=== PATIENT | male | born 1985 | race Caucasian/White ===

== ENCOUNTER 2016-12-27 16:11 | Emergency (ER) | payer MEDICAID ==
--- NOTE | 2016-12-27 16:17 | EDM.PDOC ---
ED HPI GENERAL MEDICAL PROBLEM - General Chief Complaint: ENT Problem Stated Complaint: MOUTH PAIN, [id number] Time Seen by Provider: 12/27/16 16:16 Source of Information: Reports: Patient, RN, RN Notes Reviewed History Limitations: Reports: No Limitations - History of Present Illness INITIAL COMMENTS - FREE TEXT/NARRATIVE: C/O left lower molar cavity that broke off weeks ago. Last week it hurt for several days, then got better. Yesterday the pain returned and was worse, then this morning he woke with left face swelling along the lower jaw. Denies purulent drainage, fever, or chills. Onset: Gradual Duration: Constant, Getting Worse Location: Reports: Other (mouth) Quality: Reports: Ache, Throbbing Severity: Severe Improves with: Reports: None Worsens with: Reports: None Associated Symptoms: Reports: No Other Symptoms Left Lower Pain Score (Numeric/FACES): 9 - Related Data Allergies Allergy/AdvReac Type Severity Reaction Status Date / Time codeine Allergy Cannot Verified 12/27/16 16:23 Remember Sulfa (Sulfonamide Allergy Cannot Verified 12/27/16 16:23 Antibiotics) Remember Home Meds: Home Meds . [No Known Home Meds] 12/27/16 [History] Past Medical History - Infectious Disease History Infectious Disease History: Reports: Hepatitis C Social & Family History - Family History Family Medical History: Noncontributory - Tobacco Use Smoking Status *Q: Current Every Day Smoker Tobacco Use Within Last Twelve Months: Cigarettes - Caffeine Use Caffeine Use: Reports: Coffee, Energy Drinks, Soda - Alcohol Use Alcohol Use History: No - Recreational Drug Use Recreational Drug Use: No - Living Situation & Occupation Occupation: Employed ED ROS ENT - Review of Systems Review Of Systems: ROS reveals no pertinent complaints other than HPI. ED EXAM, ENT - Physical Exam Exam: See Below Exam Limited By: No Limitations General Appearance: Alert, WD/WN, No Apparent Distress Eye Exam: Bilateral Eye: Normal Inspection Ears: Normal External Exam, Normal Canal, Hearing Grossly Normal, Normal TMs Nose: Normal Inspection, Normal Mucousa, No Blood Mouth/Throat: Normal Lips, Normal Oropharynx, Dental Abcess (left mandibular molar), Dental Pain, Dental Tenderness, Other (extensive dental decay) Head: Atraumatic, Normocephalic, Facial Swelling, Facial Tenderness (left mandibular) Neck: Normal Inspection, Supple, Non-Tender, Full Range of Motion. No: Lymphadenopathy (L), Lymphadenopathy (R) Respiratory/Chest: No Respiratory Distress Neurological: Alert, Oriented, CN II-XII Intact, Normal Cognition, Normal Gait, No Motor/Sensory Deficits Psychiatric: Normal Affect, Normal Mood Skin: Warm, Dry, Intact, Normal Color, No Rash Course - Vital Signs Last Recorded V/S: Last Vital Signs Temp 36.8 C 12/27/16 16:24 Pulse 94 12/27/16 16:24 Resp 18 12/27/16 16:24 BP 122/75 12/27/16 16:24 Pulse Ox 100 12/27/16 16:24 - Orders/Labs/Meds Orders: Active Orders 24 hr Category Date Time Status Peripheral IV Care [RC] . DIRECTED Care 12/27/16 16:35 Active Sodium Chloride 0.9% [Saline Flush] Med 12/27/16 16:34 Active 10 ml FLUSH ASDIRECTED PRN Peripheral IV Insertion Adult [OM.PC] Stat Oth 12/27/16 16:34 Ordered Medication Orders Sodium Chloride (Saline Flush) 10 ml FLUSH ASDIRECTED PRN PRN Reason: Keep Vein Open Last Admin: 12/27/16 16:45 Dose: 10 ml Meds: Medications Generic Name Dose Route Start Last Admin Trade Name Freq PRN Reason Stop Dose Admin Sodium Chloride 10 ml 12/27/16 16:34 12/27/16 16:45 Saline Flush FLUSH 10 ml ASDIRECTED PRN Administration Keep Vein Open Discontinued Medications Generic Name Dose Route Start Last Admin Trade Name Freq PRN Reason Stop Dose Admin Dexamethasone 20 mg 12/27/16 16:35 12/27/16 16:45 Dexamethasone IVPUSH 12/27/16 16:36 20 mg ONETIME ONE Administration Piperacillin Sod/Tazobactam 100 mls @ 200 mls/hr 12/27/16 16:35 12/27/16 16: 43 Sod 3.375 gm/ Sodium Chloride IV 12/27/16 17:04 200 mls/hr ONETIME ONE Administration Lidocaine HCl 15 ml 12/27/16 16:36 12/27/16 16:45 Xylocaine 2% Viscous PO 12/27/16 16:37 15 ml ONETIME ONE Administration Tramadol HCl 50 mg 12/27/16 16:37 06/05/17 16:45 Ultram PO 12/27/16 16:38 50 mg ONETIME ONE Administration Departure - Departure Time of Disposition: 17:18 Disposition: Home, Self-Care 01 Condition: good Clinical Impression: Dental abscess, Dental caries - Discharge Information Instructions: Dental Abscess, [id number], Dental Caries, [id number] Forms: ED Department Discharge Additional Instructions: Rx: Amoxicillin 500mg Rx: Flagyl 500mg Rx: Viscous Lidocaine 2% Follow up with dentist at the first available appointment. - My Orders Last 24 Hours: My Active Orders 12/27/16 16:34 Sodium Chloride 0.9% [Saline Flush] 10 ml FLUSH ASDIRECTED PRN Peripheral IV Insertion Adult [OM.PC] Stat 12/27/16 16:35 Peripheral IV Care [RC] . DIRECTED - Assessment/Plan Last 24 Hours: My Active Orders 12/27/16 16:34 Sodium Chloride 0.9% [Saline Flush] 10 ml FLUSH ASDIRECTED PRN Peripheral IV Insertion Adult [OM.PC] Stat 12/27/16 16:35 Peripheral IV Care [RC] . DIRECTED
[2016-12-27 16:27] VITALS: BP 122/75
[2016-12-27] MEDS ORDERED: Sodium Chloride 0.9% 10 ML Syringe FLUSH PRN (16:34)
[2016-12-27] MEDS ORDERED: Dexamethasone 4 MG/ML SDV IVPUSH ONE (16:35)
[2016-12-27] MEDS ORDERED: Piperacillin/Tazobactam 3.375 GM in Sodium Chloride 0.9% 100 ML IV ONE (16:35)
[2016-12-27] MEDS ORDERED: Lidocaine 2% Viscous Solution 15 ML Cup PO ONE (16:36)
[2016-12-27] MEDS ORDERED: traMADol 50 MG Tab PO ONE (16:37)
== END 2016-12-27 17:16 | disposition home or self-care (01) ==
LOC: DL.ED 16:11
DX: K04.7 Periapical abscess without sinus (principal); K02.9 Dental caries, unspecified; F17.210 Nicotine dependence, cigarettes, uncomplicated; Z88.2 Allergy status to sulfonamides; Z88.5 Allergy status to narcotic agent
CPT/HCPCS: 96365; 96375; 99282; A9270; J1100; J2543; J7050

== ENCOUNTER 2018-01-29 15:25 | Emergency (ER) | payer MEDICAID ==
[2018-01-29] MEDS ORDERED: Sodium Chloride 0.9% 10 ML Syringe FLUSH PRN (17:40)
[2018-01-29] MEDS ORDERED: Ondansetron 4 MG/2 ML SDV IV ONE (17:42)
[2018-01-29] MEDS ORDERED: Sodium Chloride 0.9% 1,000 ML IV ONE (17:42)
[2018-01-29 18:21] LABS: ANION GAP 10.4; CHLORIDE,CL 101 mmol/L (101-111); SODIUM,NA 137 mmol/L (135-145)
--- NOTE | 2018-01-29 19:12 | EDM.PDOC ---
Scribed by Rita Law 01/29/18 1903 for Garfield Fernandez MD <Valeria Hearn - Last Filed: 01/29/18 19:56> ED HPI GENERAL MEDICAL PROBLEM - General Chief Complaint: Abdominal Pain Stated Complaint: SEVERE STOMACH PAIN, CANT EAT [id number] Time Seen by Provider: 01/29/18 17:20 - Related Data Allergies Allergy/AdvReac Type Severity Reaction Status Date / Time codeine Allergy Cannot Verified 01/29/18 17:25 Remember Sulfa (Sulfonamide Allergy Cannot Verified 01/29/18 17:25 Antibiotics) Remember Home Meds: Home Meds . [No Known Home Meds] 12/27/16 [History] Course - Vital Signs Last Recorded V/S: Last Vital Signs Temp 36.9 C 01/29/18 20:00 Pulse 99 01/29/18 20:00 Resp 18 01/29/18 20:00 BP 136/73 01/29/18 20:00 Pulse Ox 99 01/29/18 20:00 - Orders/Labs/Meds Orders: Active Orders 24 hr Category Date Time Status Peripheral IV Care [RC] . DIRECTED Care 01/29/18 17:41 Active CHLAMYDIA AND GONORRHEA BY TMA Routine Lab 01/29/18 18:20 Received DRUG SCREEN URINE BIORAD [URCHEM] Stat Lab 01/29/18 18:20 Ordered UA W/MICROSCOPIC [URIN] Stat Lab 01/29/18 18:20 Ordered Peripheral IV Insertion Adult [OM.PC] Stat Oth 01/29/18 17:40 Ordered Labs: Laboratory Tests 01/29/18 01/29/18 01/29/18 Range/Units 17:55 17:55 18:20 WBC 11.5 H (5.0-10.0) 10^3/uL RBC 4.97 (4.6-6.2) 10^6/uL Hgb 15.0 (14.0-18.0) g/dL Hct 42.4 (40.0-54.0) % MCV 85.3 (80-100) fL MCH 30.2 (27.0-34.0) pg MCHC 35.4 H (33.0-35.0) g/dL Plt Count 284 (150-450) 10^3/uL Neut % (Auto) 65.6 (42.2-75.2) % Lymph % (Auto) 21.4 (20.5-50.1) % [place] % (Auto) 11.1 H (2-8) % Eos % (Auto) 1.6 (1.0-3.0) % Baso % (Auto) 0.3 (0.0-1.0) % Sodium 137 (135-145) mmol/L Potassium 3.4 L (3.6-5.0) mmol/L Chloride 101 (101-111) mmol/L Carbon Dioxide 29.0 (21.0-31.0) mmol/L Anion Gap 10.4 BUN 19 H (7-18) mg/dL Creatinine 1.0 (0.6-1.3) mg/dL Est Cr Clr Drug Dosing 110.88 mL/min Estimated GFR (MDRD) > 60 BUN/Creatinine Ratio 19.00 Glucose 70 L (74-105) mg/dL Calcium 9.4 (8.4-10.2) mg/dl Total Bilirubin 0.8 (0.2-1.0) mg/dL AST 49 H (10-42) IU/L ALT 72 H (10-60) IU/L Alkaline Phosphatase 53 (42-121) IU/L Total Protein 7.0 (6.7-8.2) g/dl Albumin 4.4 (3.2-5.5) g/dl Globulin 2.6 Albumin/Globulin Ratio 1.69 Amylase 40 (28-100) U/L Lipase 28 (22-51) U/L Urine Color Dark yellow (YELLOW) Urine Appearance Slightly cloudy (CLEAR) Urine pH 5.5 (5.0-9.0) Ur Specific [place] >= 1.030 (1.005-1.030) Urine Protein 100 H (NEGATIVE) Urine Glucose (UA) Negative (NEGATIVE) Urine Ketones Trace H (NEGATIVE) Urine Occult Blood Negative (NEGATIVE) Urine Nitrite Negative (NEGATIVE) Urine Bilirubin Small H (NEGATIVE) Urine Urobilinogen 0.2 (0.2-1.0) mg/dL Ur Leukocyte Esterase Negative (NEGATIVE) Urine RBC 0-5 /HPF Urine WBC 0-5 (0-5/HPF) /HPF Ur Epithelial Cells Few /HPF Urine Bacteria Moderate H (0-FEW/HPF) /HPF Hyaline Casts Few H /LPF Urine Mucus Many H /LPF Urine Opiates Screen (NEGATIVE) Ur Oxycodone Screen (NEGATIVE) Urine Methadone Screen (NEGATIVE) Ur Barbiturates Screen (NEGATIVE) U Tricyclic Antidepress (NEGATIVE) Ur Phencyclidine Scrn (NEGATIVE) Ur Amphetamine Screen (NEGATIVE) U Methamphetamines Scrn (NEGATIVE) Urine MDMA Screen (NEGATIVE) U Benzodiazepines Scrn (NEGATIVE) Urine Cocaine Screen (NEGATIVE) U Marijuana (THC) Screen (NEGATIVE) 01/29/18 Range/Units 18:20 WBC (5.0-10.0) 10^3/uL RBC (4.6-6.2) 10^6/uL Hgb (14.0-18.0) g/dL Hct (40.0-54.0) % MCV (80-100) fL MCH (27.0-34.0) pg MCHC (33.0-35.0) g/dL Plt Count (150-450) 10^3/uL Neut % (Auto) (42.2-75.2) % Lymph % (Auto) (20.5-50.1) % [place] % (Auto) (2-8) % Eos % (Auto) (1.0-3.0) % Baso % (Auto) (0.0-1.0) % Sodium (135-145) mmol/L Potassium (3.6-5.0) mmol/L Chloride (101-111) mmol/L Carbon Dioxide (21.0-31.0) mmol/L Anion Gap BUN (7-18) mg/dL Creatinine (0.6-1.3) mg/dL Est Cr Clr Drug Dosing mL/min Estimated GFR (MDRD) BUN/Creatinine Ratio Glucose (74-105) mg/dL Calcium (8.4-10.2) mg/dl Total Bilirubin (0.2-1.0) mg/dL AST (10-42) IU/L ALT (10-60) IU/L Alkaline Phosphatase (42-121) IU/L Total Protein (6.7-8.2) g/dl Albumin (3.2-5.5) g/dl Globulin Albumin/Globulin Ratio Amylase (28-100) U/L Lipase (22-51) U/L Urine Color (YELLOW) Urine Appearance (CLEAR) Urine pH (5.0-9.0) Ur Specific [place] (1.005-1.030) Urine Protein (NEGATIVE) Urine Glucose (UA) (NEGATIVE) Urine Ketones (NEGATIVE) Urine Occult Blood (NEGATIVE) Urine Nitrite (NEGATIVE) Urine Bilirubin (NEGATIVE) Urine Urobilinogen (0.2-1.0) mg/dL Ur Leukocyte Esterase (NEGATIVE) Urine RBC /HPF Urine WBC (0-5/HPF) /HPF Ur Epithelial Cells /HPF Urine Bacteria (0-FEW/HPF) /HPF Hyaline Casts /LPF Urine Mucus /LPF Urine Opiates Screen Negative (NEGATIVE) Ur Oxycodone Screen Negative (NEGATIVE) Urine Methadone Screen Negative (NEGATIVE) Ur Barbiturates Screen Negative (NEGATIVE) U Tricyclic Antidepress Negative (NEGATIVE) Ur Phencyclidine Scrn Negative (NEGATIVE) Ur Amphetamine Screen Positive H (NEGATIVE) U Methamphetamines Scrn Positive H (NEGATIVE) Urine MDMA Screen Positive H (NEGATIVE) U Benzodiazepines Scrn Negative (NEGATIVE) Urine Cocaine Screen Negative (NEGATIVE) U Marijuana (THC) Screen Positive H (NEGATIVE) Meds: Medications Discontinued Medications Generic Name Dose Route Start Last Admin Trade Name Freq PRN Reason Stop Dose Admin Sodium Chloride 1,000 mls @ 999 mls/hr 01/29/18 17:42 01/29/18 18:01 Normal Saline IV 01/29/18 18:42 999 mls/hr .BOLUS ONE Administration Ondansetron HCl 4 mg 01/29/18 17:42 01/29/18 18:04 Zofran IV 01/29/18 17:43 4 mg ONETIME ONE Administration Sodium Chloride 10 ml 01/29/18 17:40 01/29/18 18:03 Saline Flush FLUSH 10 ml ASDIRECTED PRN Administration Keep Vein Open - Radiology Interpretation Free Text/Narrative:: CT abdomen/pelvis: IMPRESSION: 1. There is moderate fatty liver replacement. 2. Nondistended urinary bladder with or without cystitis. Thank you for allowing us to participate in the care of your patient. Dictated and Authenticated by: Jesús Talley MD 01/29/2018 7:28 PM Central Time ([place] & [place]) See rad report Departure - Departure Time of Disposition: 19:56 Disposition: Home, Self-Care 01 Condition: Fair Clinical Impression: Methamphetamine abuse, Polysubstance abuse Abdominal pain Qualifiers: Abdominal location: right lower quadrant Qualified Code(s): R10.31 - Right lower quadrant pain - Discharge Information Instructions: Abdominal Pain, Adult, [id number] Referrals: PCP,Elsa [Primary Care Provider] - Forms: ED Department Discharge Additional Instructions: May use Tylenol and/or ibuprofen as directed for pain Drink plenty of water Abstain from drug use. Seek treatment if you are unable to quit on your own. Follow up with your primary care facility if no improvement - My Orders Last 24 Hours: My Active Orders 01/29/18 17:40 Peripheral IV Insertion Adult [OM.PC] Stat 01/29/18 17:41 Peripheral IV Care [RC] . DIRECTED 01/29/18 18:20 CHLAMYDIA AND GONORRHEA BY TMA Routine DRUG SCREEN URINE BIORAD [URCHEM] Stat UA W/MICROSCOPIC [URIN] Stat - Assessment/Plan Last 24 Hours: My Active Orders 01/29/18 17:40 Peripheral IV Insertion Adult [OM.PC] Stat 01/29/18 17:41 Peripheral IV Care [RC] . DIRECTED 01/29/18 18:20 CHLAMYDIA AND GONORRHEA BY TMA Routine DRUG SCREEN URINE BIORAD [URCHEM] Stat UA W/MICROSCOPIC [URIN] Stat <Garfield Fernandez - Last Filed: 01/30/18 12:15> ED HPI GENERAL MEDICAL PROBLEM - General Source of Information: Reports: Patient, RN, RN Notes Reviewed History Limitations: Reports: No Limitations - History of Present Illness INITIAL COMMENTS - FREE TEXT/NARRATIVE: Patient presents to ER with complaint of right sided abdominal pain and right flank pain that radiates to the right abdomen. The pain began yesterday but was not severe. Today the pain returned suddenly and quickly began severe and patient broke out in a cold sweat, vomited once and states that he passed out briefly due to the pain. The pain has now eased up and rates the pain as a 2 out of 10. Denies fever or chills. Denies diarrhea. The patient states that he has not felt like eating or drinking since the pain started yesterday. Onset Date: 01/28/18 Duration: Getting Worse, Waxing/Waning Location: Reports: Abdomen Quality: Reports: Ache Severity: Severe Improves with: Reports: None Worsens with: Reports: None Associated Symptoms: Reports: No Other Symptoms Abdomen Pain Score (Numeric/FACES): 2 Past Medical History - Past Health History Medical/Surgical History: Denies Medical/Surgical History - Infectious Disease History Infectious Disease History: Reports: Hepatitis C Social & Family History - Family History Family Medical History: Noncontributory - Caffeine Use Caffeine Use: Reports: Coffee, Energy Drinks, Soda - Living Situation & Occupation Occupation: Employed ED ROS GENERAL - Review of Systems Review Of Systems: ROS reveals no pertinent complaints other than HPI. ED EXAM, GI/ABD - Physical Exam Exam: See Below Exam Limited By: No Limitations General Appearance: Alert, WD/WN, No Apparent Distress Eyes: Bilateral: Normal Appearance, EOMI Nose: Normal Inspection, Normal Mucosa, No Blood Throat/Mouth: Normal Lips, Normal Oropharynx, Normal Voice, No Airway Compromise , Other (dry oral membranes) Head: Atraumatic, Normocephalic Neck: Normal Inspection, Supple, Non-Tender, Full Range of Motion Respiratory/Chest: No Respiratory Distress, Lungs Clear, Normal Breath Sounds, No Accessory Muscle Use, Chest Non-Tender Cardiovascular: Normal Peripheral Pulses, Regular Rate, Rhythm, No Edema, No Gallop, No JVD, No Murmur, No Rub GI/Abdominal Exam: Normal Bowel Sounds, Soft, Non-Tender, No Organomegaly, No Distention, No Abnormal Bruit, No Mass, Pelvis Stable, Other (the area of right upper quadrant pain is nontender to palpation, but painful without palpation in waxing and weaning pattern per patient.) (Male) Exam: Deferred Rectal (Males) Exam: Deferred Back Exam: Normal Inspection Extremities: Normal Inspection Neurological: Alert, Oriented, CN II-XII Intact, Normal Cognition, Normal Gait, No Motor/Sensory Deficits Psychiatric: Normal Affect, Normal Mood Skin Exam: Warm, Dry, Intact, Normal Color, No Rash Course - Orders/Labs/Meds Orders: Active Orders 24 hr Category Date Time Status Peripheral IV Care [RC] . DIRECTED Care 01/29/18 17:41 Active CHLAMYDIA AND GONORRHEA BY TMA Routine Lab 01/29/18 18:20 Received DRUG SCREEN URINE BIORAD [URCHEM] Stat Lab 01/29/18 18:20 Ordered UA W/MICROSCOPIC [URIN] Stat Lab 01/29/18 18:20 Ordered Peripheral IV Insertion Adult [OM.PC] Stat Oth 01/29/18 17:40 Ordered Labs: Laboratory Tests 01/29/18 01/29/18 01/29/18 Range/Units 17:55 17:55 18:20 WBC 11.5 H (5.0-10.0) 10^3/uL RBC 4.97 (4.6-6.2) 10^6/uL Hgb 15.0 (14.0-18.0) g/dL Hct 42.4 (40.0-54.0) % MCV 85.3 (80-100) fL MCH 30.2 (27.0-34.0) pg MCHC 35.4 H (33.0-35.0) g/dL Plt Count 284 (150-450) 10^3/uL Neut % (Auto) 65.6 (42.2-75.2) % Lymph % (Auto) 21.4 (20.5-50.1) % [place] % (Auto) 11.1 H (2-8) % Eos % (Auto) 1.6 (1.0-3.0) % Baso % (Auto) 0.3 (0.0-1.0) % Sodium 137 (135-145) mmol/L Potassium 3.4 L (3.6-5.0) mmol/L Chloride 101 (101-111) mmol/L Carbon Dioxide 29.0 (21.0-31.0) mmol/L Anion Gap 10.4 BUN 19 H (7-18) mg/dL Creatinine 1.0 (0.6-1.3) mg/dL Est Cr Clr Drug Dosing 110.88 mL/min Estimated GFR (MDRD) > 60 BUN/Creatinine Ratio 19.00 Glucose 70 L (74-105) mg/dL Calcium 9.4 (8.4-10.2) mg/dl Total Bilirubin 0.8 (0.2-1.0) mg/dL AST 49 H (10-42) IU/L ALT 72 H (10-60) IU/L Alkaline Phosphatase 53 (42-121) IU/L Total Protein 7.0 (6.7-8.2) g/dl Albumin 4.4 (3.2-5.5) g/dl Globulin 2.6 Albumin/Globulin Ratio 1.69 Amylase 40 (28-100) U/L Lipase 28 (22-51) U/L Urine Color Dark yellow (YELLOW) Urine Appearance Slightly cloudy (CLEAR) Urine pH 5.5 (5.0-9.0) Ur Specific [place] >= 1.030 (1.005-1.030) Urine Protein 100 H (NEGATIVE) Urine Glucose (UA) Negative (NEGATIVE) Urine Ketones Trace H (NEGATIVE) Urine Occult Blood Negative (NEGATIVE) Urine Nitrite Negative (NEGATIVE) Urine Bilirubin Small H (NEGATIVE) Urine Urobilinogen 0.2 (0.2-1.0) mg/dL Ur Leukocyte Esterase Negative (NEGATIVE) Urine RBC 0-5 /HPF Urine WBC 0-5 (0-5/HPF) /HPF Ur Epithelial Cells Few /HPF Urine Bacteria Moderate H (0-FEW/HPF) /HPF Hyaline Casts Few H /LPF Urine Mucus Many H /LPF Urine Opiates Screen (NEGATIVE) Ur Oxycodone Screen (NEGATIVE) Urine Methadone Screen (NEGATIVE) Ur Barbiturates Screen (NEGATIVE) U Tricyclic Antidepress (NEGATIVE) Ur Phencyclidine Scrn (NEGATIVE) Ur Amphetamine Screen (NEGATIVE) U Methamphetamines Scrn (NEGATIVE) Urine MDMA Screen (NEGATIVE) U Benzodiazepines Scrn (NEGATIVE) Urine Cocaine Screen (NEGATIVE) U Marijuana (THC) Screen (NEGATIVE) 01/29/18 Range/Units 18:20 WBC (5.0-10.0) 10^3/uL RBC (4.6-6.2) 10^6/uL Hgb (14.0-18.0) g/dL Hct (40.0-54.0) % MCV (80-100) fL MCH (27.0-34.0) pg MCHC (33.0-35.0) g/dL Plt Count (150-450) 10^3/uL Neut % (Auto) (42.2-75.2) % Lymph % (Auto) (20.5-50.1) % [place] % (Auto) (2-8) % Eos % (Auto) (1.0-3.0) % Baso % (Auto) (0.0-1.0) % Sodium (135-145) mmol/L Potassium (3.6-5.0) mmol/L Chloride (101-111) mmol/L Carbon Dioxide (21.0-31.0) mmol/L Anion Gap BUN (7-18) mg/dL Creatinine (0.6-1.3) mg/dL Est Cr Clr Drug Dosing mL/min Estimated GFR (MDRD) BUN/Creatinine Ratio Glucose (74-105) mg/dL Calcium (8.4-10.2) mg/dl Total Bilirubin (0.2-1.0) mg/dL AST (10-42) IU/L ALT (10-60) IU/L Alkaline Phosphatase (42-121) IU/L Total Protein (6.7-8.2) g/dl Albumin (3.2-5.5) g/dl Globulin Albumin/Globulin Ratio Amylase (28-100) U/L Lipase (22-51) U/L Urine Color (YELLOW) Urine Appearance (CLEAR) Urine pH (5.0-9.0) Ur Specific [place] (1.005-1.030) Urine Protein (NEGATIVE) Urine Glucose (UA) (NEGATIVE) Urine Ketones (NEGATIVE) Urine Occult Blood (NEGATIVE) Urine Nitrite (NEGATIVE) Urine Bilirubin (NEGATIVE) Urine Urobilinogen (0.2-1.0) mg/dL Ur Leukocyte Esterase (NEGATIVE) Urine RBC /HPF Urine WBC (0-5/HPF) /HPF Ur Epithelial Cells /HPF Urine Bacteria (0-FEW/HPF) /HPF Hyaline Casts /LPF Urine Mucus /LPF Urine Opiates Screen Negative (NEGATIVE) Ur Oxycodone Screen Negative (NEGATIVE) Urine Methadone Screen Negative (NEGATIVE) Ur Barbiturates Screen Negative (NEGATIVE) U Tricyclic Antidepress Negative (NEGATIVE) Ur Phencyclidine Scrn Negative (NEGATIVE) Ur Amphetamine Screen Positive H (NEGATIVE) U Methamphetamines Scrn Positive H (NEGATIVE) Urine MDMA Screen Positive H (NEGATIVE) U Benzodiazepines Scrn Negative (NEGATIVE) Urine Cocaine Screen Negative (NEGATIVE) U Marijuana (THC) Screen Positive H (NEGATIVE) Meds: Medications Discontinued Medications Generic Name Dose Route Start Last Admin Trade Name Freq PRN Reason Stop Dose Admin Sodium Chloride 1,000 mls @ 999 mls/hr 01/29/18 17:42 01/29/18 18:01 Normal Saline IV 01/29/18 18:42 999 mls/hr .BOLUS ONE Administration Ondansetron HCl 4 mg 01/29/18 17:42 01/29/18 18:04 Zofran IV 01/29/18 17:43 4 mg ONETIME ONE Administration Sodium Chloride 10 ml 01/29/18 17:40 01/29/18 18:03 Saline Flush FLUSH 10 ml ASDIRECTED PRN Administration Keep Vein Open - Re-Assessments/Exams Free Text/Narrative Re-Assessment/Exam: 01/29/18 19:11 Care of pt transferred to [facility] with CT results pending. - My Orders Last 24 Hours: My Active Orders 01/29/18 17:40 Peripheral IV Insertion Adult [OM.PC] Stat 01/29/18 17:41 Peripheral IV Care [RC] . DIRECTED 01/29/18 18:20 CHLAMYDIA AND GONORRHEA BY TMA Routine DRUG SCREEN URINE BIORAD [URCHEM] Stat UA W/MICROSCOPIC [URIN] Stat - Assessment/Plan Last 24 Hours: My Active Orders 01/29/18 17:40 Peripheral IV Insertion Adult [OM.PC] Stat 01/29/18 17:41 Peripheral IV Care [RC] . DIRECTED 01/29/18 18:20 CHLAMYDIA AND GONORRHEA BY TMA Routine DRUG SCREEN URINE BIORAD [URCHEM] Stat UA W/MICROSCOPIC [URIN] Stat I have read and agree with the documentation that has been completed regarding this visit. By signing this record, I attest that the documentation was completed in my physical presence and is an accurate record of the encounter.
[2018-01-29 20:08] VITALS: BP 136/73
== END 2018-01-29 20:02 | disposition home or self-care (01) ==
LOC: DL.ED 15:25
DX: R10.31 Right lower quadrant pain (principal); F15.10 Other stimulant abuse, uncomplicated; F19.10 Other psychoactive substance abuse, uncomplicated; Z88.5 Allergy status to narcotic agent; Z88.2 Allergy status to sulfonamides
CPT/HCPCS: 36415; 74176; 80053; 80305; 81001; 82150; 83690; 85025; 87491; 87591; 96361; 96374; 99284; J2405; J7030; J7050

== ENCOUNTER 2018-12-03 17:35 | Inpatient (IN) | payer MEDICAID ==
--- NOTE | 2018-12-03 17:48 | EDM.PDOC ---
ED HPI GENERAL MEDICAL PROBLEM - General Chief Complaint: Skin Complaint Stated Complaint: BITE ON STOMACH AND TOE, ? SPIDER Time Seen by Provider: 12/03/18 17:48 Source of Information: Reports: Patient, Old Records, RN, RN Notes Reviewed History Limitations: Reports: No Limitations - History of Present Illness INITIAL COMMENTS - FREE TEXT/NARRATIVE: Pt presents to ER from home by POV with c/o skin infection on the right foot and abdomen which he thinks is either from spider bites or ingrown hairs that got infected. Pt states he was just released from residential after serving 1 year or a 6 year sentence. He states he is a prior IV drug user and had a serious infection of his left arm that required surgery before he went to residential, but he does not know if he has ever had MRSA or not. Pt denies fever, chills, or nausea. He first noticed the redness around a bump or bite on the right foot near the little toe about 2 or 3 days ago. Today it was more swollen and spontaneously drained some pus, or he squeezed it and a lot of pus came out but then the swelling and redness increased so he came to the ER. Onset: Gradual Duration: Day(s): (3), Constant, Getting Worse Location: Reports: Abdomen, Lower Extremity, Right Quality: Reports: Ache, Burning, Throbbing Severity: Severe Improves with: Reports: None Worsens with: Reports: None Associated Symptoms: Reports: No Other Symptoms Right Middle Abdomen Pain Score (Numeric/FACES): 6 Right Foot Pain Score (Numeric/FACES): 6 - Related Data Allergies Allergy/AdvReac Type Severity Reaction Status Date / Time codeine Allergy Cannot Verified 01/29/18 17:25 Remember Sulfa (Sulfonamide Allergy Cannot Verified 01/29/18 17:25 Antibiotics) Remember Home Meds: Home Meds . [No Known Home Meds] 12/27/16 [History] Past Medical History - Past Health History Medical/Surgical History: Denies Medical/Surgical History HEENT History: Reports: None Cardiovascular History: Reports: None Respiratory History: Reports: None Gastrointestinal History: Reports: None Genitourinary History: Reports: None Musculoskeletal History: Reports: None Neurological History: Reports: None Psychiatric History: Reports: Addiction Endocrine/Metabolic History: Reports: None Hematologic History: Reports: None Immunologic History: Reports: None Oncologic (Cancer) History: Reports: None Dermatologic History: Reports: Cellulitis, Other (See Below) (Abscess left arm from IV drug use.) - Infectious Disease History Infectious Disease History: Reports: Hepatitis C - Past Surgical History Head Surgeries/Procedures: Reports: None Musculoskeletal Surgical History: Reports: Other (See Below) (Left arm antecubital fossa abscess surgical debridement.) Social & Family History - Family History Family Medical History: Noncontributory - Tobacco Use Smoking Status *Q: Current Every Day Smoker Tobacco Use Within Last Twelve Months: Cigarettes - Caffeine Use Caffeine Use: Reports: Coffee, Energy Drinks, Soda - Alcohol Use Alcohol Use History: No - Recreational Drug Use Recreational Drug Use: Yes Drug Use in Last 12 Months: No Recreational Drug Type: Reports: Marijuana/Hashish, Methamphetamine, Oxycodone Recreational Drug Use Frequency: Not Used In Over 1 Year Recreational Drug Route: Reports: Intravenous, Oral - Living Situation & Occupation Occupation: Employed ED ROS GENERAL - Review of Systems Review Of Systems: ROS reveals no pertinent complaints other than HPI. ED EXAM, SKIN/RASH Exam: See Below Exam Limited By: No Limitations General Appearance: Alert, WD/WN, No Apparent Distress Nose: No Blood, Other (excoriated lesions at tip of nose and around medial nares with some crusting) Throat/Mouth: Normal Lips, Normal Voice, No Airway Compromise Head: Atraumatic, Normocephalic Neck: Normal Inspection, Supple, Non-Tender, Full Range of Motion. No: Lymphadenopathy (L), Lymphadenopathy (R) Respiratory/Chest: No Respiratory Distress, Lungs Clear, Normal Breath Sounds, No Accessory Muscle Use, Chest Non-Tender Cardiovascular: Regular Rate, Rhythm GI/Abdominal: Normal Bowel Sounds, Soft, No Distention, Other (Rt lower abdominal wall with 5.5cm x 7cm firm non-fluctuant, tender, erythematous area with a central ingrown infected hair and localized increased warmth.) (Male) Exam: Deferred Rectal (Males) Exam: Deferred Back Exam: Normal Inspection, Full Range of Motion Extremities: Normal Range of Motion, No Pedal Edema, Normal Capillary Refill, Other (Dorasal right foot acutely tender with bright erythema measuring 10cm x 5cm and mild erythema extending 20cm x 10cm with a central excoriated lesion, mild swelling, increased warmth, but no purulent drainage.) Neurological: Alert, Oriented, Normal Cognition, No Motor/Sensory Deficits Psychiatric: Normal Mood Course - Vital Signs Last Recorded V/S: Last Vital Signs Temp 36.8 C 12/03/18 17:40 Pulse 109 H 12/03/18 17:40 Resp 18 12/03/18 17:40 BP 142/72 H 12/03/18 17:40 Pulse Ox 99 12/03/18 17:40 - Orders/Labs/Meds Orders: Active Orders 24 hr Category Date Time Status Peripheral IV Care [RC] . DIRECTED Care 12/03/18 18:03 Active CRP [C-REACTIVE PROTEIN] [CHEM] Stat Lab 12/03/18 18:07 Received MRSA CULTURE [MREF] Stat Lab 12/03/18 18:21 Received Sodium Chloride 0.9% [Saline Flush] Med 12/03/18 18:03 Active 10 ml FLUSH ASDIRECTED PRN Vancomycin 1 gm Med 12/03/18 18:04 Active Sodium Chloride 0.9% [Normal Saline] 250 ml IV ONETIME Peripheral IV Insertion Adult [OM.PC] Stat Oth 12/03/18 18:03 Ordered Medication Orders Vancomycin HCl 1 gm/ Sodium (Chloride) 250 mls @ 167 mls/hr IV ONETIME ONE Stop: 12/03/18 19:33 Last Admin: 12/03/18 18:16 Dose: 167 mls/hr Sodium Chloride (Saline Flush) 10 ml FLUSH ASDIRECTED PRN PRN Reason: Keep Vein Open Last Admin: 12/03/18 18:17 Dose: 10 ml Labs: Laboratory Tests 12/03/18 12/03/18 Range/Units 18:07 18:07 WBC 16.0 H (5.0-10.0) 10^3/uL RBC 5.24 (4.6-6.2) 10^6/uL Hgb 15.7 (14.0-18.0) g/dL Hct 45.2 (40.0-54.0) % MCV 86.3 (80-100) fL MCH 30.0 (27.0-34.0) pg MCHC 34.7 (33.0-35.0) g/dL Plt Count 289 (150-450) 10^3/uL Neut % (Auto) 75.7 H (42.2-75.2) % Lymph % (Auto) 11.0 L (20.5-50.1) % [place] % (Auto) 12.4 H (2-8) % Eos % (Auto) 0.7 L (1.0-3.0) % Baso % (Auto) 0.2 (0.0-1.0) % Sodium 139 (135-145) mmol/L Potassium 3.4 L (3.6-5.0) mmol/L Chloride 104 (101-111) mmol/L Carbon Dioxide 25.0 (21.0-31.0) mmol/L Anion Gap 13.4 BUN 13 (7-18) mg/dL Creatinine 0.7 (0.6-1.3) mg/dL Est Cr Clr Drug Dosing 137.98 mL/min Estimated GFR (MDRD) > 60 BUN/Creatinine Ratio 18.57 Glucose 93 (74-105) mg/dL Calcium 9.0 (8.4-10.2) mg/dl Total Bilirubin 0.8 (0.2-1.0) mg/dL AST 96 H (10-42) IU/L ALT 167 H (10-60) IU/L Alkaline Phosphatase 55 (42-121) IU/L Total Protein 7.0 (6.7-8.2) g/dl Albumin 4.0 (3.2-5.5) g/dl Globulin 3.0 Albumin/Globulin Ratio 1.33 Meds: Medications Generic Name Dose Route Start Last Admin Trade Name Freq PRN Reason Stop Dose Admin Vancomycin HCl 1 gm/ Sodium 250 mls @ 167 mls/hr 12/03/18 18:04 12/03/18 18: 16 Chloride IV 12/03/18 19:33 167 mls/hr ONETIME ONE Administration Sodium Chloride 10 ml 12/03/18 18:03 12/03/18 18:17 Saline Flush FLUSH 10 ml ASDIRECTED PRN Administration Keep Vein Open Discontinued Medications Generic Name Dose Route Start Last Admin Trade Name Freq PRN Reason Stop Dose Admin Diphenhydramine HCl 25 mg 12/03/18 18:03 12/03/18 18:16 Benadryl IVPUSH 12/03/18 18:04 25 mg ONETIME ONE Administration - Re-Assessments/Exams Free Text/Narrative Re-Assessment/Exam: 12/03/18 18:44 I think the pt's Hx of serious skin infection and current exam with WBC >16,000 warrants admission for IV antibiotics. Departure - Departure Time of Disposition: 18:45 (admit to Dr. Nicolas) Disposition: Admitted As Inpatient 68 Condition: Serious Clinical Impression: Cellulitis of right lower extremity, Cellulitis of abdominal wall - Discharge Information *PRESCRIPTION DRUG MONITORING PROGRAM REVIEWED*: No *COPY OF PRESCRIPTION DRUG MONITORING REPORT IN PATIENT YELITZA: No Forms: ED Department Discharge - My Orders Last 24 Hours: My Active Orders 12/03/18 18:03 Peripheral IV Care [RC] . DIRECTED Sodium Chloride 0.9% [Saline Flush] 10 ml FLUSH ASDIRECTED PRN Peripheral IV Insertion Adult [OM.PC] Stat 12/03/18 18:04 Vancomycin 1 gm Sodium Chloride 0.9% [Normal Saline] 250 ml IV ONETIME 12/03/18 18:07 CRP [C-REACTIVE PROTEIN] [CHEM] Stat 12/03/18 18:21 MRSA CULTURE [MREF] Stat - Assessment/Plan Last 24 Hours: My Active Orders 12/03/18 18:03 Peripheral IV Care [RC] . DIRECTED Sodium Chloride 0.9% [Saline Flush] 10 ml FLUSH ASDIRECTED PRN Peripheral IV Insertion Adult [OM.PC] Stat 12/03/18 18:04 Vancomycin 1 gm Sodium Chloride 0.9% [Normal Saline] 250 ml IV ONETIME 12/03/18 18:07 CRP [C-REACTIVE PROTEIN] [CHEM] Stat 12/03/18 18:21 MRSA CULTURE [MREF] Stat
[2018-12-03] MEDS ORDERED: diphenhydrAMINE 50 MG/ML SDV IVPUSH ONE (18:03)
[2018-12-03] MEDS: Sodium Chloride 0.9% 10 ML Syringe FLUSH PRN (18:17)
[2018-12-03 18:36] LABS: ANION GAP 13.4; CHLORIDE,CL 104 mmol/L (101-111); SODIUM,NA 139 mmol/L (135-145)
[2018-12-03] MEDS ORDERED: Docusate Sodium 100 MG Cap PO PRN (20:21)
[2018-12-03] MEDS ORDERED: Ondansetron 4 MG Tab.DIS PO PRN (20:21)
[2018-12-03] MEDS ORDERED: Ibuprofen 400 MG Tab PO PRN (20:21)
[2018-12-03] MEDS ORDERED: Potassium Chloride 10 MEQ Tab.ER PO ONE (20:24)
--- NOTE | 2018-12-03 20:28 | PCM.HP ---
H&P History of Present Illness - General Date of Service: 12/03/18 Admit Problem/Dx: Admission Diagnosis/Problem Admission Diagnosis/Problem Cellulitis Source of Information: Patient, Provider - History of Present Illness Initial Comments - Free Text/Narative: 33-year-old with a history of drug use. Has not been injecting and using drugs for about a year. He is smoking but no alcohol use. Presented with right lateral foot redness, an area of redness on the right side of the abdomen. These started a few days prior to admission. Associated with swelling, no chills or fever. No chest pain, no abdominal pain, no diarrhea. Right Middle Abdomen Pain Score (Numeric/FACES): 6 Right Foot Pain Score (Numeric/FACES): 6 - Related Data Allergies/Adverse Reactions: Allergies Allergy/AdvReac Type Severity Reaction Status Date / Time codeine Allergy Cannot Verified 12/03/18 19:29 Remember Sulfa (Sulfonamide Allergy Cannot Verified 12/03/18 19:29 Antibiotics) Remember Home Medications: Home Meds . [No Known Home Meds] 12/27/16 [History] Past Medical History - Past Health History Medical/Surgical History: Denies Medical/Surgical History HEENT History: Reports: None Cardiovascular History: Reports: None Respiratory History: Reports: None Gastrointestinal History: Reports: None Genitourinary History: Reports: None Musculoskeletal History: Reports: None Neurological History: Reports: None Psychiatric History: Reports: Addiction Endocrine/Metabolic History: Reports: None Hematologic History: Reports: None Immunologic History: Reports: None Oncologic (Cancer) History: Reports: None Dermatologic History: Reports: Cellulitis, Other (See Below) - Infectious Disease History Infectious Disease History: Reports: Hepatitis C - Past Surgical History Head Surgeries/Procedures: Reports: None Musculoskeletal Surgical History: Reports: Other (See Below) Social & Family History - Family History Family Medical History: Noncontributory - Tobacco Use Smoking Status *Q: Current Every Day Smoker Years of Tobacco use: 20 Packs/Tins Daily: 1 Used Tobacco, but Quit: No Second Hand Smoke Exposure: No - Caffeine Use Caffeine Use: Reports: None - Recreational Drug Use Recreational Drug Use: No Drug Use in Last 12 Months: No Recreational Drug Type: Reports: Marijuana/Hashish, Methamphetamine, Oxycodone Recreational Drug Use Frequency: Not Used In Over 1 Year - Living Situation & Occupation Occupation: Employed H&P Review of Systems - Review of Systems: Review Of Systems: See Below General: Denies: Fever Pulmonary: Denies: Shortness of Breath Cardiovascular: Denies: Chest Pain, Edema Gastrointestinal: Denies: Abdominal Pain Psychiatric: Denies: Confusion Exam - Exam Exam: See Below - Vital Signs Vital Signs: Last Vital Signs Temp 36.8 C 12/03/18 17:40 Pulse 109 H 12/03/18 17:40 Resp 18 12/03/18 17:40 BP 142/72 H 12/03/18 17:40 Pulse Ox 99 12/03/18 17:40 Weight: 75.92 kg - Exam General: Alert, Oriented Neck: Supple Lungs: Clear to Auscultation, Normal Respiratory Effort Cardiovascular: Regular Rate, Regular Rhythm GI/Abdominal Exam: Normal Bowel Sounds, Soft, Non-Tender Extremities: Pedal Edema Skin: Warm, Other (Right lateral foot erythema with small area of induration, no obvious abscess palpable, right abdominal wall with small area of induration , erythema, no abscess palpable) - Patient Data Lab Results Last 24 hrs: Laboratory Results - last 24 hr 12/03/18 12/03/18 12/03/18 Range/Units 18:07 18:07 18:07 WBC 16.0 H (5.0-10.0) 10^3/uL RBC 5.24 (4.6-6.2) 10^6/uL Hgb 15.7 (14.0-18.0) g/dL Hct 45.2 (40.0-54.0) % MCV 86.3 (80-100) fL MCH 30.0 (27.0-34.0) pg MCHC 34.7 (33.0-35.0) g/dL Plt Count 289 (150-450) 10^3/uL Neut % (Auto) 75.7 H (42.2-75.2) % Lymph % (Auto) 11.0 L (20.5-50.1) % [place] % (Auto) 12.4 H (2-8) % Eos % (Auto) 0.7 L (1.0-3.0) % Baso % (Auto) 0.2 (0.0-1.0) % Sodium 139 (135-145) mmol/L Potassium 3.4 L (3.6-5.0) mmol/L Chloride 104 (101-111) mmol/L Carbon Dioxide 25.0 (21.0-31.0) mmol/L Anion Gap 13.4 BUN 13 (7-18) mg/dL Creatinine 0.7 (0.6-1.3) mg/dL Est Cr Clr Drug Dosing 137.98 mL/min Estimated GFR (MDRD) > 60 BUN/Creatinine Ratio 18.57 Glucose 93 (74-105) mg/dL Calcium 9.0 (8.4-10.2) mg/dl Total Bilirubin 0.8 (0.2-1.0) mg/dL AST 96 H (10-42) IU/L ALT 167 H (10-60) IU/L Alkaline Phosphatase 55 (42-121) IU/L C-Reactive Protein 6.2 H (0.0-1.3) mg/dL Total Protein 7.0 (6.7-8.2) g/dl Albumin 4.0 (3.2-5.5) g/dl Globulin 3.0 Albumin/Globulin Ratio 1.33 Result Diagrams: 12/03/18 18:07 12/03/18 18:07 - Problem List (1) Cellulitis of abdominal wall SNOMED Code(s): 57575794 ICD Code: L03.311 - CELLULITIS OF ABDOMINAL WALL Status: Acute Current Visit: No (2) Cellulitis of right lower extremity SNOMED Code(s): 005626883 ICD Code: L03.115 - CELLULITIS OF RIGHT LOWER LIMB Status: Acute Current Visit: No Problem List Initiated/Reviewed/Updated: Yes Orders Last 24hrs: Active Orders 24 hr Category Date Time Status Patient Status [ADT] Routine ADT 12/03/18 20:21 Ordered Ambulate [RC] PER UNIT ROUTINE Care 12/03/18 20:22 Ordered Oxygen Therapy [RC] PRN Care 12/03/18 20:21 Ordered Peripheral IV Care [RC] . DIRECTED Care 12/03/18 18:03 Active Up With Assistance [RC] ASDIRECTED Care 12/03/18 20:21 Ordered VTE/DVT Education [RC] PER UNIT ROUTINE Care 12/03/18 20:21 Ordered Vital Signs [RC] Q4H Care 12/03/18 20:21 Ordered Regular Diet [DIET] Diet 12/03/18 Breakfast Ordered BASIC METABOLIC PANEL,BMP [CHEM] AM Lab 12/04/18 05:15 Ordered CBC WITH AUTO DIFF [HEME] AM Lab 12/04/18 05:15 Ordered CULTURE BLOOD [BC] Stat Lab 12/03/18 20:20 Ordered CULTURE BLOOD [BC] Stat Lab 12/03/18 20:20 Ordered MRSA CULTURE [MREF] Stat Lab 12/03/18 18:21 Received Acetaminophen [Tylenol] Med 12/03/18 20:21 Ordered 650 mg PO Q4H PRN Docusate Sodium [Colace] Med 12/03/18 20:21 Ordered 100 mg PO BID PRN Heparin Sodium Med 12/03/18 22:00 Ordered 5,000 units SUBCUT Q8HR Ibuprofen [Motrin] Med 12/03/18 20:21 Ordered 400 mg PO Q6H PRN Ketorolac [Toradol] Med 12/03/18 20:21 Ordered 30 mg IVPUSH Q6H PRN Ondansetron [Zofran ODT] Med 12/03/18 20:21 Ordered 4 mg PO Q6H PRN Pharmacy to Dose - Vancomycin Med 12/03/18 20:30 Ordered 1 dose .XX ASDIRECTED Piperacillin/Tazobactam [Zosyn] 3.375 gm Med 12/03/18 20:30 Ordered Sodium Chloride 0.9% [Normal Saline] 100 ml IV Q6H Potassium Chloride [Klor-Con 10] Med 12/03/18 20:24 Once 40 meq PO ONETIME ONE Sodium Chloride 0.9% [Saline Flush] Med 12/03/18 18:03 Active 10 ml FLUSH ASDIRECTED PRN Zolpidem [Ambien] Med 12/03/18 20:21 Ordered 5 mg PO BEDTIME PRN Blood Culture x2 Reflex Set [OM.PC] Stat Oth 12/03/18 20:20 Ordered Peripheral IV Insertion Adult [OM.PC] Stat Oth 12/03/18 18:03 Ordered Resuscitation Status Routine Resus Stat 12/03/18 20:21 Ordered Medication Orders Acetaminophen (Tylenol) 650 mg PO Q4H PRN PRN Reason: Pain (Mild 1-3)/fever Docusate Sodium (Colace) 100 mg PO BID PRN PRN Reason: Constipation Heparin Sodium (Porcine) (Heparin Sodium) 5,000 units SUBCUT Q8HR [facility] Piperacillin Sod/Tazobactam (Sod 3.375 gm/ Sodium Chloride) 100 mls @ 200 mls/ hr IV Q6H [facility] Ibuprofen (Motrin) 400 mg PO Q6H PRN PRN Reason: Pain (Moderate 4-6) Ketorolac Tromethamine (Toradol) 30 mg IVPUSH Q6H PRN PRN Reason: Pain (severe 7-10) Ondansetron HCl (Zofran Odt) 4 mg PO Q6H PRN PRN Reason: nausea, able to take PO Sodium Chloride (Saline Flush) 10 ml FLUSH ASDIRECTED PRN PRN Reason: Keep Vein Open Last Admin: 12/03/18 18:17 Dose: 10 ml Vancomycin HCl (Pharmacy To Dose - Vancomycin) 1 dose .XX ASDIRECTED [facility] Zolpidem Tartrate (Ambien) 5 mg PO BEDTIME PRN PRN Reason: Sleep Assessment/Plan Comment:: Cellulitis of the right lateral foot and right side of abdomen Marked the area of redness on both of these locations Will obtain blood culture Obtain MRSA swab Start treatment with Zosyn and vancomycin Pain control with Tylenol, Motrin, Toradol Avoid narcotics DVT prophylaxis with subcutaneous heparin
[2018-12-03] MEDS: Piperacillin/Tazobactam 3.375 GM in Sodium Chloride 0.9% 100 ML IV SCH (21:06)
[2018-12-03] MEDS: Heparin Sodium 5,000 Units/ML Vial SUBCUT SCH (21:09)
[2018-12-03] MEDS: Ketorolac 30 MG/ML SDV IVPUSH PRN (21:10)
[2018-12-03] MEDS: Zolpidem 5 MG Tab PO PRN (21:12)
[2018-12-04] MEDS: Piperacillin/Tazobactam 3.375 GM in Sodium Chloride 0.9% 100 ML IV SCH ×5 (02:24→23:26)
[2018-12-04] MEDS: Heparin Sodium 5,000 Units/ML Vial SUBCUT SCH ×3 (05:38→21:43)
[2018-12-04] MEDS: Ketorolac 30 MG/ML SDV IVPUSH PRN ×3 (05:41→20:13)
[2018-12-04 07:21] LABS: ANION GAP 12.2; CHLORIDE,CL 108 mmol/L (101-111); SODIUM,NA 138 mmol/L (135-145)
[2018-12-04] MEDS: Sodium Chloride 0.9% 10 ML Syringe FLUSH PRN ×2 (09:04→16:46)
--- NOTE | 2018-12-04 11:47 | PCM.PN ---
- General Info Date of Service: 12/04/18 Subjective Update: no fever, feeling ok tolerating diet Functional Status: Reports: Pain Controlled, Tolerating Diet - Review of Systems General: Denies: Fever, Weakness Pulmonary: Denies: Shortness of Breath Cardiovascular: Denies: Chest Pain Gastrointestinal: Denies: Abdominal Pain Neurological: Denies: Confusion - Patient Data Vitals - Most Recent: Last Vital Signs Temp 36.3 C 12/04/18 08:28 Pulse 79 12/04/18 08:28 Resp 20 12/04/18 08:28 BP 113/63 12/04/18 08:28 Pulse Ox 99 12/04/18 08:28 Weight - Most Recent: 75.92 kg I&O - Last 24 Hours: Intake & Output 12/03/18 12/04/18 12/04/18 22:59 06:59 14:59 Intake Total 600 860 669 Balance 600 860 669 Lab Results Last 24 Hours: Laboratory Results - last 24 hr 12/03/18 12/03/18 12/03/18 Range/Units 18:07 18:07 18:07 WBC 16.0 H (5.0-10.0) 10^3/uL RBC 5.24 (4.6-6.2) 10^6/uL Hgb 15.7 (14.0-18.0) g/dL Hct 45.2 (40.0-54.0) % MCV 86.3 (80-100) fL MCH 30.0 (27.0-34.0) pg MCHC 34.7 (33.0-35.0) g/dL Plt Count 289 (150-450) 10^3/uL Neut % (Auto) 75.7 H (42.2-75.2) % Lymph % (Auto) 11.0 L (20.5-50.1) % [place] % (Auto) 12.4 H (2-8) % Eos % (Auto) 0.7 L (1.0-3.0) % Baso % (Auto) 0.2 (0.0-1.0) % Sodium 139 (135-145) mmol/L Potassium 3.4 L (3.6-5.0) mmol/L Chloride 104 (101-111) mmol/L Carbon Dioxide 25.0 (21.0-31.0) mmol/L Anion Gap 13.4 BUN 13 (7-18) mg/dL Creatinine 0.7 (0.6-1.3) mg/dL Est Cr Clr Drug Dosing 137.98 mL/min Estimated GFR (MDRD) > 60 BUN/Creatinine Ratio 18.57 Glucose 93 (74-105) mg/dL Calcium 9.0 (8.4-10.2) mg/dl Total Bilirubin 0.8 (0.2-1.0) mg/dL AST 96 H (10-42) IU/L ALT 167 H (10-60) IU/L Alkaline Phosphatase 55 (42-121) IU/L C-Reactive Protein 6.2 H (0.0-1.3) mg/dL Total Protein 7.0 (6.7-8.2) g/dl Albumin 4.0 (3.2-5.5) g/dl Globulin 3.0 Albumin/Globulin Ratio 1.33 12/04/18 12/04/18 Range/Units 06:33 06:33 WBC 13.5 H (5.0-10.0) 10^3/uL RBC 4.87 (4.6-6.2) 10^6/uL Hgb 14.6 (14.0-18.0) g/dL Hct 42.4 (40.0-54.0) % MCV 87.1 (80-100) fL MCH 30.0 (27.0-34.0) pg MCHC 34.4 (33.0-35.0) g/dL Plt Count 259 (150-450) 10^3/uL Neut % (Auto) 72.6 (42.2-75.2) % Lymph % (Auto) 12.3 L (20.5-50.1) % [place] % (Auto) 13.1 H (2-8) % Eos % (Auto) 1.9 (1.0-3.0) % Baso % (Auto) 0.1 (0.0-1.0) % Sodium 138 (135-145) mmol/L Potassium 4.2 (3.6-5.0) mmol/L Chloride 108 (101-111) mmol/L Carbon Dioxide 22.0 (21.0-31.0) mmol/L Anion Gap 12.2 BUN 14 (7-18) mg/dL Creatinine 0.9 (0.6-1.3) mg/dL Est Cr Clr Drug Dosing 126.66 mL/min Estimated GFR (MDRD) > 60 BUN/Creatinine Ratio Glucose 101 (74-105) mg/dL Calcium 8.7 (8.4-10.2) mg/dl Total Bilirubin (0.2-1.0) mg/dL AST (10-42) IU/L ALT (10-60) IU/L Alkaline Phosphatase (42-121) IU/L C-Reactive Protein (0.0-1.3) mg/dL Total Protein (6.7-8.2) g/dl Albumin (3.2-5.5) g/dl Globulin Albumin/Globulin Ratio Med Orders - Current: Current Medications Acetaminophen (Tylenol) 650 mg PO Q4H PRN PRN Reason: Pain (Mild 1-3)/fever Docusate Sodium (Colace) 100 mg PO BID PRN PRN Reason: Constipation Heparin Sodium (Porcine) (Heparin Sodium) 5,000 units SUBCUT Q8HR [facility] Last Admin: 12/04/18 05:38 Dose: 5,000 units Vancomycin HCl 1.25 gm/ Sodium (Chloride) 250 mls @ 166.667 mls/hr IV Q8H [facility] Last Admin: 12/04/18 09:04 Dose: 166.667 mls/hr Piperacillin Sod/Tazobactam (Sod 3.375 gm/ Sodium Chloride) 100 mls @ 200 mls/ hr IV Q6HR [facility] Ibuprofen (Motrin) 400 mg PO Q6H PRN PRN Reason: Pain (Moderate 4-6) Ketorolac Tromethamine (Toradol) 30 mg IVPUSH Q6HR PRN PRN Reason: Pain (severe 7-10) Ondansetron HCl (Zofran Odt) 4 mg PO Q6H PRN PRN Reason: nausea, able to take PO Sodium Chloride (Saline Flush) 10 ml FLUSH ASDIRECTED PRN PRN Reason: Keep Vein Open Last Admin: 12/04/18 09:04 Dose: 10 ml Vancomycin HCl (Pharmacy To Dose - Vancomycin) 1 dose .XX ASDIRECTED [facility] Zolpidem Tartrate (Ambien) 5 mg PO BEDTIME PRN PRN Reason: Sleep Last Admin: 12/03/18 21:12 Dose: 5 mg Discontinued Medications Diphenhydramine HCl (Benadryl) 25 mg IVPUSH ONETIME ONE Stop: 12/03/18 18:04 Last Admin: 12/03/18 18:16 Dose: 25 mg Vancomycin HCl 1 gm/ Sodium (Chloride) 250 mls @ 167 mls/hr IV ONETIME ONE Stop: 12/03/18 19:33 Last Admin: 12/03/18 18:16 Dose: 167 mls/hr Piperacillin Sod/Tazobactam (Sod 3.375 gm/ Sodium Chloride) 100 mls @ 200 mls/ hr IV Q6H [facility] Last Admin: 12/04/18 08:30 Dose: 200 mls/hr Ketorolac Tromethamine (Toradol) 30 mg IVPUSH Q6H PRN PRN Reason: Pain (severe 7-10) Last Admin: 12/04/18 05:41 Dose: 30 mg Potassium Chloride (Klor-Con 10) 40 meq PO ONETIME ONE Stop: 12/03/18 20:25 Last Admin: 12/03/18 21:06 Dose: 40 meq - Exam General: Alert, Oriented Neck: Supple Lungs: Clear to Auscultation, Normal Respiratory Effort Cardiovascular: Regular Rate, Regular Rhythm GI/Abdominal Exam: Normal Bowel Sounds, Soft, Non-Tender Extremities: No Pedal Edema Skin: Warm, Other (r. foot palpable abscess, redness improved, r. abdominal wall indurated area) Neurological: No New Focal Deficit Psy/Mental Status: Alert, Normal Affect, Normal Mood - Problem List & Annotations (1) Cellulitis of abdominal wall SNOMED Code(s): 11001465 Code(s): L03.311 - CELLULITIS OF ABDOMINAL WALL Status: Acute Current Visit: No (2) Cellulitis of right lower extremity SNOMED Code(s): 517753115 Code(s): L03.115 - CELLULITIS OF RIGHT LOWER LIMB Status: Acute Current Visit: No - Problem List Review Problem List Initiated/Reviewed/Updated: Yes - My Orders Last 24 Hours: My Active Orders 12/03/18 20:20 Blood Culture x2 Reflex Set [OM.PC] Stat 12/03/18 20:21 Patient Status [ADT] Routine Oxygen Therapy [RC] PRN Up With Assistance [RC] ASDIRECTED VTE/DVT Education [RC] PER UNIT ROUTINE Vital Signs [RC] Q4H Acetaminophen [Tylenol] 650 mg PO Q4H PRN Docusate Sodium [Colace] 100 mg PO BID PRN Ibuprofen [Motrin] 400 mg PO Q6H PRN Ondansetron [Zofran ODT] 4 mg PO Q6H PRN Zolpidem [Ambien] 5 mg PO BEDTIME PRN Resuscitation Status Routine 12/03/18 20:22 Ambulate [RC] PER UNIT ROUTINE 12/03/18 20:30 Pharmacy to Dose - Vancomycin 1 dose .XX ASDIRECTED 12/03/18 21:00 CULTURE BLOOD [BC] Stat 12/03/18 21:03 CULTURE BLOOD [BC] Stat 12/03/18 22:00 Heparin Sodium 5,000 units SUBCUT Q8HR 12/04/18 00:00 Vancomycin 1.25 gm Sodium Chloride 0.9% [Normal Saline] 250 ml IV Q8H 12/04/18 11:07 Notify Provider Consults [RC] ASDIRECTED 12/04/18 12:00 Ketorolac [Toradol] 30 mg IVPUSH Q6HR PRN 12/04/18 13:30 Piperacillin/Tazobactam [Zosyn] 3.375 gm Sodium Chloride 0.9% [Normal Saline] 100 ml IV Q6HR - Plan Plan:: Cellulitis of the right lateral foot and right side of abdomen Marked the area of redness on both of these locations blood culture: pending consulted and d/w dr. Curiel from surgery - rec abdominal wound exploration in OR, rec podiatry consult Consult podiatry Berny vazquez cont treatment with Zosyn and vancomycin Pain control with Tylenol, Motrin, Toradol Avoid narcotics DVT prophylaxis with subcutaneous heparin
--- NOTE | 2018-12-04 17:49 | PCM.CONSN ---
- General Info Date of Service: 12/04/18 Admission Dx/Problem (Free Text): Admission Diagnosis/Problem Admission Diagnosis/Problem Cellulitis Subjective Update: 33 y/o male who I am seeing at bedside today admitted on 12/03/18 for cellulitis/ abscess abdomen and right foot. I was consulted for right foot cellulitis. Pt reports he noticed the right foot becoming painful and red 3-4 days ago. It continued to get increasingly painful and he did have a small amount of drainage come out. He then decided to go to the ER where he was admitted and placed on IV zosyn. He reports he is still having a significant amount of foot pain, the foot has not had any drainage for the last 2 days. He denies any n/v/f /c. No pain extending up the leg. - Review of Systems General: Reports: No Symptoms - Patient Data Vitals - Most Recent: Last Vital Signs Temp 37.3 C 12/04/18 16:54 Pulse 70 12/04/18 16:54 Resp 16 12/04/18 16:54 BP 121/66 12/04/18 16:54 Pulse Ox 99 12/04/18 16:54 Weight - Most Recent: 75.92 kg I&O - Last 24 Hours: Intake & Output 12/04/18 12/04/18 12/04/18 06:59 14:59 22:59 Intake Total 860 1008 Balance 860 1008 Lab Results Last 24 Hours: Laboratory Results - last 24 hr 12/03/18 12/03/18 12/03/18 Range/Units 18:07 18:07 18:07 WBC 16.0 H (5.0-10.0) 10^3/uL RBC 5.24 (4.6-6.2) 10^6/uL Hgb 15.7 (14.0-18.0) g/dL Hct 45.2 (40.0-54.0) % MCV 86.3 (80-100) fL MCH 30.0 (27.0-34.0) pg MCHC 34.7 (33.0-35.0) g/dL Plt Count 289 (150-450) 10^3/uL Neut % (Auto) 75.7 H (42.2-75.2) % Lymph % (Auto) 11.0 L (20.5-50.1) % [place] % (Auto) 12.4 H (2-8) % Eos % (Auto) 0.7 L (1.0-3.0) % Baso % (Auto) 0.2 (0.0-1.0) % Sodium 139 (135-145) mmol/L Potassium 3.4 L (3.6-5.0) mmol/L Chloride 104 (101-111) mmol/L Carbon Dioxide 25.0 (21.0-31.0) mmol/L Anion Gap 13.4 BUN 13 (7-18) mg/dL Creatinine 0.7 (0.6-1.3) mg/dL Est Cr Clr Drug Dosing 137.98 mL/min Estimated GFR (MDRD) > 60 BUN/Creatinine Ratio 18.57 Glucose 93 (74-105) mg/dL Calcium 9.0 (8.4-10.2) mg/dl Total Bilirubin 0.8 (0.2-1.0) mg/dL AST 96 H (10-42) IU/L ALT 167 H (10-60) IU/L Alkaline Phosphatase 55 (42-121) IU/L C-Reactive Protein 6.2 H (0.0-1.3) mg/dL Total Protein 7.0 (6.7-8.2) g/dl Albumin 4.0 (3.2-5.5) g/dl Globulin 3.0 Albumin/Globulin Ratio 1.33 Vancomycin Trough (10-15) ug/ml 12/04/18 12/04/18 12/04/18 Range/Units 06:33 06:33 15:28 WBC 13.5 H (5.0-10.0) 10^3/uL RBC 4.87 (4.6-6.2) 10^6/uL Hgb 14.6 (14.0-18.0) g/dL Hct 42.4 (40.0-54.0) % MCV 87.1 (80-100) fL MCH 30.0 (27.0-34.0) pg MCHC 34.4 (33.0-35.0) g/dL Plt Count 259 (150-450) 10^3/uL Neut % (Auto) 72.6 (42.2-75.2) % Lymph % (Auto) 12.3 L (20.5-50.1) % O[place]Brien % (Auto) 13.1 H (2-8) % Eos % (Auto) 1.9 (1.0-3.0) % Baso % (Auto) 0.1 (0.0-1.0) % Sodium 138 (135-145) mmol/L Potassium 4.2 (3.6-5.0) mmol/L Chloride 108 (101-111) mmol/L Carbon Dioxide 22.0 (21.0-31.0) mmol/L Anion Gap 12.2 BUN 14 (7-18) mg/dL Creatinine 0.9 (0.6-1.3) mg/dL Est Cr Clr Drug Dosing 126.66 mL/min Estimated GFR (MDRD) > 60 BUN/Creatinine Ratio Glucose 101 (74-105) mg/dL Calcium 8.7 (8.4-10.2) mg/dl Total Bilirubin (0.2-1.0) mg/dL AST (10-42) IU/L ALT (10-60) IU/L Alkaline Phosphatase (42-121) IU/L C-Reactive Protein (0.0-1.3) mg/dL Total Protein (6.7-8.2) g/dl Albumin (3.2-5.5) g/dl Globulin Albumin/Globulin Ratio Vancomycin Trough 11.0 (10-15) ug/ml Med Orders - Current: Current Medications Acetaminophen (Tylenol) 650 mg PO Q4H PRN PRN Reason: Pain (Mild 1-3)/fever Docusate Sodium (Colace) 100 mg PO BID PRN PRN Reason: Constipation Heparin Sodium (Porcine) (Heparin Sodium) 5,000 units SUBCUT Q8HR [facility] Last Admin: 12/04/18 14:08 Dose: 5,000 units Vancomycin HCl 1.25 gm/ Sodium (Chloride) 250 mls @ 166.667 mls/hr IV Q8H [facility] Last Admin: 12/04/18 16:45 Dose: 166.667 mls/hr Piperacillin Sod/Tazobactam (Sod 3.375 gm/ Sodium Chloride) 100 mls @ 200 mls/ hr IV Q6HR [facility] Last Admin: 12/04/18 14:08 Dose: 200 mls/hr Ibuprofen (Motrin) 400 mg PO Q6H PRN PRN Reason: Pain (Moderate 4-6) Ketorolac Tromethamine (Toradol) 30 mg IVPUSH Q6HR PRN PRN Reason: Pain (severe 7-10) Last Admin: 12/04/18 14:07 Dose: 30 mg Ondansetron HCl (Zofran Odt) 4 mg PO Q6H PRN PRN Reason: nausea, able to take PO Sodium Chloride (Saline Flush) 10 ml FLUSH ASDIRECTED PRN PRN Reason: Keep Vein Open Last Admin: 12/04/18 16:46 Dose: 10 ml Vancomycin HCl (Pharmacy To Dose - Vancomycin) 1 dose .XX ASDIRECTED [facility] Zolpidem Tartrate (Ambien) 5 mg PO BEDTIME PRN PRN Reason: Sleep Last Admin: 12/03/18 21:12 Dose: 5 mg Discontinued Medications Diphenhydramine HCl (Benadryl) 25 mg IVPUSH ONETIME ONE Stop: 12/03/18 18:04 Last Admin: 12/03/18 18:16 Dose: 25 mg Vancomycin HCl 1 gm/ Sodium (Chloride) 250 mls @ 167 mls/hr IV ONETIME ONE Stop: 12/03/18 19:33 Last Admin: 12/03/18 18:16 Dose: 167 mls/hr Piperacillin Sod/Tazobactam (Sod 3.375 gm/ Sodium Chloride) 100 mls @ 200 mls/ hr IV Q6H [facility] Last Admin: 12/04/18 08:30 Dose: 200 mls/hr Ketorolac Tromethamine (Toradol) 30 mg IVPUSH Q6H PRN PRN Reason: Pain (severe 7-10) Last Admin: 12/04/18 05:41 Dose: 30 mg Potassium Chloride (Klor-Con 10) 40 meq PO ONETIME ONE Stop: 12/03/18 20:25 Last Admin: 12/03/18 21:06 Dose: 40 meq - Exam Physical Findings Comments:: On right LE exam: There is cellulitis present to the dorsal lateral foot which is marked out with marking pen and has not spread past that marking. There is a small scabbed area on the dorsal 5th toe that appears to have some underlying purulent drainage, there is some fluctuance present with palpation to the area. No active drainage today. Pain to the area that extends to lateral midfoot but not proximally up the leg. Consult PN Assessment/Plan Procedures: Procedures ASSAY OF AMYLASE (01/29/18) ASSAY OF LACTIC ACID (02/24/18) ASSAY OF LIPASE (01/29/18) BLOOD CULTURE FOR BACTERIA (02/24/18) C-REACTIVE PROTEIN (02/24/18) CHYLMD TRACH DNA AMP PROBE (01/29/18) COMPLETE CBC W/AUTO DIFF WBC (02/24/18) COMPREHEN METABOLIC PANEL (02/24/18) CT ABD & PELVIS W/O CONTRAST (01/29/18) CT UPPER EXTREMITY W/DYE (02/24/18) DRUG TEST PRSMV DIR OPT OBS (01/29/18) EMERGENCY DEPT VISIT (02/24/18) EMERGENCY DEPT VISIT (02/24/18) EMERGENCY DEPT VISIT (01/29/18) EMERGENCY DEPT VISIT (12/27/16) HYDRATE IV INFUSION ADD-ON (01/29/18) N.GONORRHOEAE DNA AMP PROB (01/29/18) ROUTINE VENIPUNCTURE (02/24/18) THER/PROPH/DIAG INJ IV PUSH (01/29/18) THER/PROPH/DIAG IV INF INIT (02/24/18) TX/PRO/DX INJ NEW DRUG ADDON (02/24/18) URINALYSIS AUTO W/SCOPE (01/29/18) (1) Cellulitis of right lower extremity SNOMED Code(s): 079106910 Code(s): L03.115 - CELLULITIS OF RIGHT LOWER LIMB Current Visit: No Problem List Initiated/Reviewed/Updated: Yes Plan: Discussed foot with the patient today. I had talked with Dr. Britton on the phone and he is planning I&D under general anesthesia tomorrow AM. He has not been NPO today so will do the procedure tomorrow. I will plan on doing I&D of the right foot at the same time when he is under anesthesia. He is currently on IV zosyn and his WBC is downtreanding from when he was admitted. I will place order for foot xrays of right foot to check the bones. That can be done tomorrow AM before surgery. NPO tonight. I will plan on placing him in post op shoe after surgery.
[2018-12-04] MEDS: Acetaminophen 325 MG Tab PO PRN (18:37)
[2018-12-05] MEDS: Ketorolac 30 MG/ML SDV IVPUSH PRN ×2 (05:18→12:17)
[2018-12-05] MEDS: Piperacillin/Tazobactam 3.375 GM in Sodium Chloride 0.9% 100 ML IV SCH ×3 (05:21→21:49)
[2018-12-05] MEDS: Heparin Sodium 5,000 Units/ML Vial SUBCUT SCH ×3 (05:59→21:49)
[2018-12-05 07:07] LABS: CHLORIDE,CL 111 mmol/L (101-111); SODIUM,NA 140 mmol/L (135-145)
--- NOTE | 2018-12-05 08:51 | CR ---
Clinical history: 33-year-old male clinical "cellulitis" lateral aspect right forefoot. Interpretation: 3 views right foot confirm soft tissue swelling fifth toe extending back into the forefoot, laterally. No underlying foreign body, abnormal subcutaneous air collection, inflammatory periostitis or current signs of osteomyelitis. No right foot fracture or dislocation.
--- NOTE | 2018-12-05 12:01 | PCM.PN ---
- General Info Date of Service: 12/05/18 Admission Dx/Problem (Free Text): Admission Diagnosis/Problem Admission Diagnosis/Problem Cellulitis Subjective Update: Feeling well, no significant high-grade fever or associated chills. Redness improved on the foot did not change much on the abdominal area. There appears to have a more fluctuance in both sites. No chest pain, no shortness of breath. Pain is controlled - Review of Systems General: Denies: Fever Pulmonary: Denies: Shortness of Breath Cardiovascular: Denies: Chest Pain Gastrointestinal: Denies: Abdominal Pain Neurological: Denies: Confusion - Patient Data Vitals - Most Recent: Last Vital Signs Temp 37.3 C 12/05/18 08:00 Pulse 93 12/05/18 08:00 Resp 20 12/05/18 08:00 BP 123/60 12/05/18 08:00 Pulse Ox 100 12/05/18 08:00 Weight - Most Recent: 75.92 kg I&O - Last 24 Hours: Intake & Output 12/04/18 12/05/18 12/05/18 22:59 06:59 14:59 Intake Total 711 250 Balance 711 250 Lab Results Last 24 Hours: Laboratory Results - last 24 hr 12/04/18 12/05/18 12/05/18 Range/Units 15:28 06:30 06:30 WBC 11.2 H (5.0-10.0) 10^3/uL RBC 4.82 (4.6-6.2) 10^6/uL Hgb 14.4 (14.0-18.0) g/dL Hct 41.7 (40.0-54.0) % MCV 86.5 (80-100) fL MCH 29.9 (27.0-34.0) pg MCHC 34.5 (33.0-35.0) g/dL Plt Count 273 (150-450) 10^3/uL Neut % (Auto) 67.8 (42.2-75.2) % Lymph % (Auto) 16.7 L (20.5-50.1) % [place] % (Auto) 11.5 H (2-8) % Eos % (Auto) 3.7 H (1.0-3.0) % Baso % (Auto) 0.3 (0.0-1.0) % Sodium 140 (135-145) mmol/L Potassium 4.0 (3.6-5.0) mmol/L Chloride 111 (101-111) mmol/L Carbon Dioxide 22.0 (21.0-31.0) mmol/L Anion Gap 11.0 BUN 12 (7-18) mg/dL Creatinine 0.7 (0.6-1.3) mg/dL Est Cr Clr Drug Dosing 162.85 mL/min Estimated GFR (MDRD) > 60 Glucose 98 (74-105) mg/dL Calcium 8.4 (8.4-10.2) mg/dl Vancomycin Trough 11.0 (10-15) ug/ml Nader Results Last 24 Hours: Microbiology 12/03/18 18:21 Nasopharyngeal Culture - Preliminary Nasopharynx, Unspecified 12/03/18 21:03 Aerobic Blood Culture - Preliminary Blood - Venous - Lab Draw NO GROWTH AFTER 1 DAY Anaerobic Blood Culture - Preliminary NO GROWTH AFTER 1 DAY 12/03/18 21:00 Aerobic Blood Culture - Preliminary Blood - Venous NO GROWTH AFTER 1 DAY Anaerobic Blood Culture - Preliminary NO GROWTH AFTER 1 DAY Med Orders - Current: Current Medications Acetaminophen (Tylenol) 650 mg PO Q4H PRN PRN Reason: Pain (Mild 1-3)/fever Last Admin: 12/04/18 18:37 Dose: 650 mg Docusate Sodium (Colace) 100 mg PO BID PRN PRN Reason: Constipation Heparin Sodium (Porcine) (Heparin Sodium) 5,000 units SUBCUT Q8HR [facility] Last Admin: 12/05/18 05:59 Dose: Not Given Vancomycin HCl 1.25 gm/ Sodium (Chloride) 250 mls @ 166.667 mls/hr IV Q8H [facility] Last Admin: 12/05/18 09:07 Dose: 166.667 mls/hr Piperacillin Sod/Tazobactam (Sod 3.375 gm/ Sodium Chloride) 100 mls @ 200 mls/ hr IV Q6HR [facility] Last Infusion: 12/05/18 06:02 Dose: Infused Ibuprofen (Motrin) 400 mg PO Q6H PRN PRN Reason: Pain (Moderate 4-6) Ketorolac Tromethamine (Toradol) 30 mg IVPUSH Q6HR PRN PRN Reason: Pain (severe 7-10) Last Admin: 12/05/18 05:18 Dose: 30 mg Ondansetron HCl (Zofran Odt) 4 mg PO Q6H PRN PRN Reason: nausea, able to take PO Sodium Chloride (Saline Flush) 10 ml FLUSH ASDIRECTED PRN PRN Reason: Keep Vein Open Last Admin: 12/04/18 16:46 Dose: 10 ml Vancomycin HCl (Pharmacy To Dose - Vancomycin) 1 dose .XX ASDIRECTED [facility] Zolpidem Tartrate (Ambien) 5 mg PO BEDTIME PRN PRN Reason: Sleep Last Admin: 12/03/18 21:12 Dose: 5 mg Discontinued Medications Diphenhydramine HCl (Benadryl) 25 mg IVPUSH ONETIME ONE Stop: 12/03/18 18:04 Last Admin: 12/03/18 18:16 Dose: 25 mg Vancomycin HCl 1 gm/ Sodium (Chloride) 250 mls @ 167 mls/hr IV ONETIME ONE Stop: 12/03/18 19:33 Last Admin: 12/03/18 18:16 Dose: 167 mls/hr Piperacillin Sod/Tazobactam (Sod 3.375 gm/ Sodium Chloride) 100 mls @ 200 mls/ hr IV Q6H [facility] Last Admin: 12/04/18 08:30 Dose: 200 mls/hr Ketorolac Tromethamine (Toradol) 30 mg IVPUSH Q6H PRN PRN Reason: Pain (severe 7-10) Last Admin: 12/04/18 05:41 Dose: 30 mg Potassium Chloride (Klor-Con 10) 40 meq PO ONETIME ONE Stop: 12/03/18 20:25 Last Admin: 12/03/18 21:06 Dose: 40 meq - Exam General: Alert, Oriented Neck: Supple Lungs: Clear to Auscultation, Normal Respiratory Effort Cardiovascular: Regular Rate, Regular Rhythm GI/Abdominal Exam: Normal Bowel Sounds, Soft, Non-Tender Extremities: No Pedal Edema Skin: Other (Erythema on the foot has improved unchanged on the abdominal site. Fluctuance palpable both sites) - Problem List & Annotations (1) Cellulitis of abdominal wall SNOMED Code(s): 93975454 Code(s): L03.311 - CELLULITIS OF ABDOMINAL WALL Status: Acute Current Visit: No (2) Cellulitis of right lower extremity SNOMED Code(s): 876570165 Code(s): L03.115 - CELLULITIS OF RIGHT LOWER LIMB Status: Acute Current Visit: No - Problem List Review Problem List Initiated/Reviewed/Updated: Yes - My Orders Last 24 Hours: My Active Orders 12/04/18 11:07 Notify Provider Consults [RC] ASDIRECTED 12/04/18 12:00 Ketorolac [Toradol] 30 mg IVPUSH Q6HR PRN 12/04/18 13:30 Piperacillin/Tazobactam [Zosyn] 3.375 gm Sodium Chloride 0.9% [Normal Saline] 100 ml IV Q6HR 12/05/18 09:24 Consult to Physician [CONS] Routine 12/05/18 09:25 Notify Provider Consults [RC] ASDIRECTED Consult to Physician [CONS] Routine 12/06/18 05:15 BASIC METABOLIC PANEL,BMP [CHEM] AM CBC WITH AUTO DIFF [HEME] AM - Plan Plan:: Cellulitis of the right lateral foot and right side of abdomen Marked the area of redness on both of these locations blood culture: pending consulted and d/w dr. Curiel from surgery - rec abdominal wound exploration in OR, Consulted podiatry Maikel vazquez - foot wound exploration in OR today cont treatment with Zosyn and vancomycin Pain control with Tylenol, Motrin, Toradol Avoid narcotics DVT prophylaxis with subcutaneous heparin
--- NOTE | 2018-12-05 15:14 | PCM.OPNOTE ---
- General Post-Op/Procedure Note Date of Surgery/Procedure: 12/05/18 Operative Procedure(s): right foot I&D Pre Op Diagnosis: right foot abscess with cellulitus Post-Op Diagnosis: katelin Anesthesia Technique: General ET Tube Primary Surgeon: Loni Ko EBL in mLs: 10 Complications: none Condition: Good Free Text/Narrative:: Intake & Output 12/05/18 12/05/18 12/05/18 06:59 14:59 22:59 Intake Total 250 Balance 250 Pt tolerated procedure well. Abscess opened and irrigated with gent solution. Packed open with iodoform packing. Keep dressing intact. I will check the foot tomorrow at bedside and change packing then. Keep foot elevated on pillow. Limited WB to foot.
[2018-12-05] MEDS: Zolpidem 5 MG Tab PO PRN (22:19)
[2018-12-06] MEDS: Acetaminophen 325 MG Tab PO PRN (01:59)
[2018-12-06] MEDS: Piperacillin/Tazobactam 3.375 GM in Sodium Chloride 0.9% 100 ML IV SCH ×5 (02:01→23:55)
--- NOTE | 2018-12-06 02:25 | OR ---
DATE: 12/05/2018 PREOPERATIVE DIAGNOSES: Abdominal wall abscess and right foot abscess. POSTOPERATIVE DIAGNOSES: Abdominal wall abscess and right foot abscess. PROCEDURE: Incision and drainage of abdominal wall abscess. Secondary procedure will be dictated by Dr. Ko who did the foot portion. ANESTHESIA: General. SPECIMEN: Culture. INDICATION FOR PROCEDURE: This 33-year-old male has been in the hospital for several days with an abscess both on the dorsal part of the right foot and a 10 cm abscess on the anterior abdominal wall just to the right side and superior to the umbilicus. By physical examination, these require drainage. PROCEDURE IN DETAIL: After adequate preparation, a transverse incision was made over the 10 cm abscess on the abdominal wall. This revealed it was full of purulent material and some necrotic subcutaneous tissue. This was irrigated clear and all the loculations were broken up to completely clean out this cavity. No inciting object was found within the cavity, however. The wound had very little bleeding. The wound was irrigated with saline and then packed open with a 4x4 gauze. The abdominal portion of the procedure was completed. Dr. Ko will dictate the foot portion of the procedure. [facility] /[id number]
[2018-12-06] MEDS: Heparin Sodium 5,000 Units/ML Vial SUBCUT SCH ×3 (06:48→22:43)
[2018-12-06 07:32] LABS: ANION GAP 13.4; CHLORIDE,CL 108 mmol/L (101-111); SODIUM,NA 140 mmol/L (135-145)
[2018-12-06] MEDS: Ketorolac 30 MG/ML SDV IVPUSH PRN (09:07)
[2018-12-06] MEDS: Mupirocin Oint 22 GM Tube SCH ×2 (12:34→22:42)
[2018-12-06] MEDS ORDERED: Gentamicin 40 MG/ML 2 ML Vial IV ONE (13:15)
[2018-12-06] MEDS ORDERED: Lidocaine 1% 30 ML SDV INJECT ONE (13:16)
[2018-12-06] MEDS ORDERED: Bupivacaine 0.5% 30 ML SDV INJECT ONE (13:16)
--- NOTE | 2018-12-06 15:05 | OR ---
DATE: 12/05/2018 PREOPERATIVE DIAGNOSES: Right foot abscess and abdominal wall abscess. POSTOPERATIVE DIAGNOSES: Right foot abscess and abdominal wall abscess. PROCEDURE PERFORMED: Incision and drainage of right foot abscess, Dr. Curiel did abdominal wall abscess at the same time. ANESTHESIA: General. TOURNIQUET: No tourniquet was used. INDICATIONS: Deyvi is a 33-year-old male, who is an inpatient in the hospital with an abscess on both the abdomen and the right foot. He has been on IV antibiotics for the last couple of days. This redness in his foot initially started 3 to 4 days ago, he did note a small amount of drainage that came out from his toe and then the redness continued to spread up his foot. X-rays of the foot revealed no signs of bone involvement, no gas in the soft tissue. DESCRIPTION OF PROCEDURE: The patient was taken to the operating room lying in supine position. After adequate anesthesia induction as described above, the right foot was prepped and draped in the usual sterile fashion. A tourniquet was applied, but was not inflated. Attention was directed to the right foot 5th digit, where there was a small scab with underlying purulent drainage. There was also a large area of fluctuance that extended proximally down the foot overlying the 5th and 4th metatarsal interspace area. An incision was made over this area of fluctuance. A large amount of purulent material was in this area and was cleaned. There was some necrotic tissue around the area, which was also cleaned. The area was inspected and it was not noted to be traveling up the tendons. The tendons did appear clean and healthy. A hemostat was used to break up any loculations and all purulent material was expressed. The area was irrigated with copious amounts of sterile saline mixed with gentamicin. The area was then again inspected and no necrotic infected tissue was visualized. The area had some bleeding, but very little. The area was then packed with iodoform packing gauze and then covered with 4 x 4, Webril, and an Erich wrap. He tolerated the procedure well and he will be brought back to the inpatient grace for continued IV antibiotics. Plan is to change his packing tomorrow. [facility] /[id number]
[2018-12-06] MEDS ORDERED: Propofol 200 MG/20 ML SDV IV ONE (15:12)
[2018-12-06] MEDS ORDERED: Ondansetron 4 MG/2 ML SDV IV ONE (15:12)
[2018-12-06] MEDS ORDERED: fentaNYL 250 MCG/5 ML SDV IV ONE (15:12)
[2018-12-06] MEDS ORDERED: Dexamethasone 4 MG/ML SDV IV ONE (15:12)
[2018-12-06] MEDS ORDERED: Lidocaine 2% 20 ML MDV INJECT ONE (15:12)
[2018-12-06] MEDS ORDERED: Midazolam 1 MG/ML 2 ML SDV IV ONE (15:12)
--- NOTE | 2018-12-06 16:08 | PCM.SN ---
- Free Text/Narrative Note: Asked to see patient on 12-04-18 for abscess on right foot and anterior abdominal wall. Will ask podiatry to see foot. Recommend I&D of abdominal wall. Will schedule for 12-05-18 under general anesthesia in the OR.
[2018-12-07] MEDS: Heparin Sodium 5,000 Units/ML Vial SUBCUT SCH (06:07)
[2018-12-07] MEDS: Piperacillin/Tazobactam 3.375 GM in Sodium Chloride 0.9% 100 ML IV SCH ×2 (06:07→12:50)
[2018-12-07] MEDS: Mupirocin Oint 22 GM Tube SCH (08:47)
[2018-12-07 12:53] VITALS: BP 141/78
[2018-12-07] MEDS ORDERED: Bupivacaine 0.5% 30 ML SDV INJECT ONE (14:35)
[2018-12-07] MEDS ORDERED: Lidocaine 1% 30 ML SDV INJECT ONE (14:35)
--- NOTE | 2018-12-07 15:46 | DISCH ---
ADMITTING DIAGNOSIS: Cellulitis and abscess of the right foot and right lower abdominal wall. DISCHARGE DIAGNOSES: 1. Cellulitis and abscess involving the right foot and also the right lower abdomen requiring incision and drainage of the abscess. 2. Possible methicillin-resistant Staphylococcus aureus infection. HISTORY OF PRESENT ILLNESS: Mr. Deyvi Benson is a 33-year-old male with a history of drug use in the past and chronic tobacco use, who was admitted to the hospital with complaints of increasing pain, redness, and tenderness to the right lateral foot and also to the right lateral abdominal wall and noted to have cellulitis and abscess. The patient was evaluated by General Surgery and had incision and drainage of the abscess from his abdominal wall wound. The patient was evaluated by Podiatry Services and underwent incision and drainage of the abscess from the right lateral foot just along the little toe on the lateral side. The patient was treated with IV antibiotics, Zosyn and vancomycin. His blood cultures remained negative, but his abscess culture was positive for Staph aureus. We are not sure if it was MRSA, but his nasal culture was positive for MRSA. The patient was advised to stay 1 more day in the hospital to determine the antibiotic course, but the patient wanted to be discharged home. He did not want to stay back in the hospital, so respecting his wishes, we changed him to oral antibiotic with Bactrim, which should be sufficient for his MRSA infection. He is given double-strength Bactrim for the next 10 days. He has a followup appointment with both Surgery and Podiatry Services tomorrow for dressing changes. He was explained about importance of being compliant with medications. He is discharged home upon the patient's wishes. He is advised to follow with scheduled appointments. DISCHARGE MEDICATIONS: Include Tylenol 650 every 4 hours as needed for pain and fever and Bactrim DS 1 tablet twice a day for the next 10 days. PHYSICAL EXAMINATION ON THE DAY OF DISCHARGE: Vital Signs: Temperature of 98.4, pulse of 94, blood pressure of 142/84, respiratory rate of 20, saturating at 98%. General Appearance: The patient is well oriented to time, place, and person. Follows commands spontaneously. Cardiovascular System: S1 and S2 heard with normal intensity. No gallops. Respiratory System: Clear to auscultation bilaterally. No wheeze. No crepitations. Abdomen: Open surgical wound noted on the lateral abdominal wall with dressing packing noted. Extremities: No edema in bilateral lower extremities. Surgical dressing noted on the right foot. CONDITION ON ADMISSION: Poor. CONDITION ON DISCHARGE: Stable. DISPOSITION: The patient wanted to be discharged home. ACTIVITY: As tolerated. DIET: Regular diet. FOLLOWUP: Follow with Podiatry and General Surgery Clinic tomorrow as scheduled. [facility] /[id number]
[2018-12-07] MEDS ORDERED: Doxycycline 100 MG Cap PO SCH (21:00)
== END 2018-12-07 15:00 | disposition home or self-care (01) | DRG 580 ==
LOC: DL.ED 17:35 → UNDOADMIN 19:03 → DL.MS 19:03
PROVIDERS: ADMIT Internal Medicine; ATTEND Internal Medicine
PROC: 0J980ZZ Drainage of Abdomen Subcutaneous Tissue and Fascia, Open Approach (ICD-10-PCS; principal; 2018-12-05)
PROC: 0Y9M0ZZ Drainage of Right Foot, Open Approach (ICD-10-PCS; 2018-12-05)
DX: L03.311 Cellulitis of abdominal wall (principal); L03.115 Cellulitis of right lower limb; B95.62 Methicillin resistant Staphylococcus aureus infection as the cause of diseases classified elsewhere; F17.210 Nicotine dependence, cigarettes, uncomplicated; B19.20 Unspecified viral hepatitis C without hepatic coma; Z88.5 Allergy status to narcotic agent; Z88.2 Allergy status to sulfonamides
CPT/HCPCS: 36415; 73630-RT; 80048; 80053; 80202; 85025; 86140; 87040; 87070; 87075; 87077; 87081; 87186; 96365; 96375; 99284-25; A9270-GY; J1100; J1200; J1580; J1644; J1885; J2001; J2250; J2405; J2543; J2704; J3010; J3370; J3490; J7050

== ENCOUNTER → 2018-12-08 | Outpatient (CLI) | payer MEDICAID ==
--- NOTE | 2018-12-08 14:41 | CN ---
SERVICE DATE: 12/08/2018 This patient shows up to my clinic for a dressing change. He had been an inpatient over this last week at the hospital and underwent an incision and drainage of an abdominal wall abscess and a right foot abscess. He was discharged yesterday afternoon and is coming in for his first dressing change as an outpatient. With removal of the 2 x 2 pack within the wound, it is much can cleaner today with not as much drainage. He has good pink subcutaneous tissue. This should easily be able to heal within this next week. I instructed him to try to pack it for the next 2 or 3 days and then simply just to put a Band-Aid over it, but clean it daily in the shower. He does not need any followup. He was given antibiotics to take for the next 10 days when he was discharged. He does not need any pain medication. [facility] /[id number]
== END ==
LOC: DL.GSCL 10:56
DX: Z48.01 Encounter for change or removal of surgical wound dressing (principal)
CPT/HCPCS: 99024

== ENCOUNTER 2019-06-20 07:58 | Emergency (ER) | payer SELFPAY ==
[2019-06-20 08:11] VITALS: BP 120/67; PULSE 95
--- NOTE | 2019-06-20 08:32 | EDM.PDOC ---
ED HPI GENERAL MEDICAL PROBLEM - General Chief Complaint: Upper Extremity Injury/Pain Stated Complaint: BUMPS ON RIGHT ELBOW/PAINFUL Time Seen by Provider: 06/20/19 08:20 Source of Information: Reports: Patient History Limitations: Reports: No Limitations - History of Present Illness INITIAL COMMENTS - FREE TEXT/NARRATIVE: This 34 yo male patient reports to the ED due to noticing several bumps on his right elbow that seem to be infected. The patient reports he also has a healing wound on his abdomen and right inner thigh. The patient reports he does have a history of MRSA. The patient is in treatment for addiction at this time and does not want to spread his infection to others. Onset: Gradual Duration: Day(s):, Constant Location: Reports: Upper Extremity, Right Quality: Reports: Other Severity: Moderate Improves with: Reports: None Worsens with: Reports: None Context: Reports: Other Associated Symptoms: Reports: No Other Symptoms Right Elbow Pain Score (Numeric/FACES): 5 - Related Data Allergies Allergy/AdvReac Type Severity Reaction Status Date / Time codeine Allergy Cannot Verified 12/08/18 11:08 Remember Sulfa (Sulfonamide Allergy Cannot Verified 12/08/18 11:08 Antibiotics) Remember Past Medical History - Past Health History Medical/Surgical History: Denies Medical/Surgical History HEENT History: Reports: None Cardiovascular History: Reports: None Respiratory History: Reports: None Gastrointestinal History: Reports: None Genitourinary History: Reports: None Musculoskeletal History: Reports: None Neurological History: Reports: None Psychiatric History: Reports: Addiction Other Psychiatric History: meth and marijuana Endocrine/Metabolic History: Reports: None Hematologic History: Reports: None Immunologic History: Reports: None Oncologic (Cancer) History: Reports: None Dermatologic History: Reports: Cellulitis, Other (See Below) Other Dermatologic History: abscesseas - Infectious Disease History Infectious Disease History: Reports: Hepatitis C - Past Surgical History Head Surgeries/Procedures: Reports: None Cardiovascular Surgical History: Reports: None Respiratory Surgical History: Reports: None Male Surgical History: Reports: None Musculoskeletal Surgical History: Reports: Other (See Below) Oncologic Surgical History: Reports: None Dermatological Surgical History: Reports: None Social & Family History - Family History Family Medical History: Noncontributory HEENT: Reports: None - Tobacco Use Smoking Status *Q: Current Every Day Smoker Years of Tobacco use: 23 Packs/Tins Daily: 1 Used Tobacco, but Quit: No - Caffeine Use Caffeine Use: Reports: Coffee - Recreational Drug Use Recreational Drug Use: Yes Drug Use in Last 12 Months: Yes Recreational Drug Type: Reports: Marijuana/Hashish, Methamphetamine Recreational Drug Use Frequency: Not Used In Over 1 Month - Living Situation & Occupation Occupation: Employed Review of Systems - Review of Systems Review Of Systems: Comprehensive ROS is negative, except as noted in HPI. ED EXAM, GENERAL - Physical Exam Exam: See Below Exam Limited By: No Limitations General Appearance: Alert, WD/WN, Mild Distress Eye Exam: Bilateral Eye: EOMI, Normal Inspection, PERRL Ears: Normal External Exam, Normal Canal, Hearing Grossly Normal, Normal TMs Nose: Normal Inspection, Normal Mucosa, No Blood Throat/Mouth: Normal Inspection, Normal Lips, Normal Teeth, Normal Gums, Normal Oropharynx, Normal Voice, No Airway Compromise Head: Atraumatic, Normocephalic Neck: Normal Inspection, Supple, Non-Tender, Full Range of Motion Respiratory/Chest: No Respiratory Distress, Lungs Clear, Normal Breath Sounds, No Accessory Muscle Use, Chest Non-Tender Cardiovascular: Normal Peripheral Pulses, Regular Rate, Rhythm, No Edema, No Gallop, No JVD, No Murmur, No Rub GI/Abdominal: Normal Bowel Sounds, Soft, Non-Tender, No Organomegaly, No Distention, No Abnormal Bruit, No Mass (Male) Exam: Deferred Rectal (Males) Exam: Deferred Back Exam: Normal Inspection, Full Range of Motion, NT Extremities: Normal Range of Motion, No Pedal Edema, Normal Capillary Refill, Increased Warmth (right elbow), Redness (right elbow) Neurological: Alert, Oriented, CN II-XII Intact, Normal Cognition, Normal Gait, Normal Reflexes, No Motor/Sensory Deficits Psychiatric: Normal Affect, Normal Mood Skin Exam: Erythema (right elbow), Increased Warmth (right elbow), Other ( healing area on upper abdomen, healing area on right inner thigh) Lymphatic: No Adenopathy Course - Vital Signs Last Recorded V/S: Last Vital Signs Temp 36.3 C 06/20/19 08:05 Pulse 95 06/20/19 08:05 Resp 18 06/20/19 08:05 BP 120/67 06/20/19 08:05 Pulse Ox 95 06/20/19 08:05 Departure - Departure Time of Disposition: 08:28 Disposition: Home, Self-Care 01 Condition: Fair Clinical Impression: Skin abscess Qualifiers: Site of cutaneous abscess: extremity Site of cutaneous abscess of extremity: upper extremity Laterality: right Qualified Code(s): L02.413 - Cutaneous abscess of right upper limb - Discharge Information *PRESCRIPTION DRUG MONITORING PROGRAM REVIEWED*: Not Applicable *COPY OF PRESCRIPTION DRUG MONITORING REPORT IN PATIENT YELITZA: Not Applicable Instructions: Skin Abscess, [id number] Forms: ED Department Discharge Care Plan Goals: The patient was advised of the examination results during the visit. The patient was discharged with a script for Clindamycin (300 mg) #40 to take 1 by mouth 4 times per day for 10 days. The patient was encouraged to keep the areas clean and covered to avoid further complications. If the patient has any additional symptoms or concerns, the patient should either return to the emergency department or visit his primary care facility.
== END 2019-06-20 08:40 | disposition home or self-care (01) ==
LOC: DL.ED 07:58
DX: L02.413 Cutaneous abscess of right upper limb (principal); F17.210 Nicotine dependence, cigarettes, uncomplicated; Z88.3 Allergy status to other anti-infective agents; Z88.2 Allergy status to sulfonamides
CPT/HCPCS: 99283

== ENCOUNTER 2019-08-12 17:28 | Emergency (ER) | payer MEDICAID, OTHER ==
[2019-08-12 18:26] VITALS: BP 140/86; PULSE 100
[2019-08-12] MEDS ORDERED: Clindamycin HCl 150 MG Cap PO ONE (19:30)
--- NOTE | 2019-08-12 19:35 | EDM.PDOC ---
ED HPI GENERAL MEDICAL PROBLEM - General Chief Complaint: Skin Complaint Stated Complaint: MRSA ON STOMACH Time Seen by Provider: 08/12/19 19:31 Source of Information: Reports: Patient History Limitations: Reports: No Limitations - History of Present Illness INITIAL COMMENTS - FREE TEXT/NARRATIVE: gives recurrent h/o abscess. states it's usually MRSA. present one x 2 days - Related Data Allergies Allergy/AdvReac Type Severity Reaction Status Date / Time codeine Allergy Cannot Verified 08/12/19 18:26 Remember Sulfa (Sulfonamide Allergy Cannot Verified 08/12/19 18:26 Antibiotics) Remember Home Meds: Home Meds Buprenorphine HCl/Naloxone HCl [Suboxone 12 mg-3 mg Sl Film] 8.2 mg PO TID 08/12 [History] Mirtazapine 15 mg PO BEDTIME 08/12/19 [History] Mirtazapine [Remeron] 15 mg PO BEDTIME 08/12/19 [History] predniSONE 20 mg PO BID 08/12/19 [History] Past Medical History - Past Health History Medical/Surgical History: Denies Medical/Surgical History HEENT History: Reports: None Cardiovascular History: Reports: None Respiratory History: Reports: None Gastrointestinal History: Reports: None Genitourinary History: Reports: None Musculoskeletal History: Reports: None Neurological History: Reports: None Psychiatric History: Reports: Addiction Other Psychiatric History: meth and marijuana Endocrine/Metabolic History: Reports: None Hematologic History: Reports: None Immunologic History: Reports: None Oncologic (Cancer) History: Reports: None Dermatologic History: Reports: Cellulitis, Other (See Below) Other Dermatologic History: abscesseas - Infectious Disease History Infectious Disease History: Reports: Hepatitis C, MRSA - Past Surgical History Head Surgeries/Procedures: Reports: None HEENT Surgical History: Reports: None Cardiovascular Surgical History: Reports: None Respiratory Surgical History: Reports: None Male Surgical History: Reports: None Musculoskeletal Surgical History: Reports: Other (See Below) Oncologic Surgical History: Reports: None Dermatological Surgical History: Reports: None Social & Family History - Family History Family Medical History: Noncontributory HEENT: Reports: None - Tobacco Use Smoking Status *Q: Current Every Day Smoker Years of Tobacco use: 22 Packs/Tins Daily: 1 Used Tobacco, but Quit: No Second Hand Smoke Exposure: Yes - Caffeine Use Caffeine Use: Reports: Coffee, Energy Drinks, Soda - Recreational Drug Use Recreational Drug Use: No - Living Situation & Occupation Occupation: Employed ED ROS GENERAL - Review of Systems Review Of Systems: Comprehensive ROS is negative, except as noted in HPI. ED EXAM, SKIN/RASH Exam: See Below Exam Limited By: No Limitations General Appearance: Alert, WD/WN, Mild Distress, Other (discomfort) Ears: Hearing Grossly Normal Throat/Mouth: Normal Voice, No Airway Compromise Head: Atraumatic Neck: Non-Tender, Full Range of Motion Respiratory/Chest: No Respiratory Distress Cardiovascular: Regular Rate, Rhythm GI/Abdominal: Soft, Non-Tender Neurological: Alert, Oriented, Normal Cognition, Normal Gait, No Motor/Sensory Deficits Psychiatric: Flat Affect Skin: Warm, Dry, Normal Color, Other (firm tender non fluctuant 1" diam abscess) Location, Skin: Abdomen Characteristics: Erythematous Associated features: Tenderness, Swelling, Inflammation. No: Lymphangitis, Weeping Course - Vital Signs Last Recorded V/S: Last Vital Signs Temp 37.2 C 08/12/19 18:21 Pulse 100 08/12/19 18:21 Resp 18 08/12/19 18:21 BP 140/86 08/12/19 18:21 Pulse Ox 100 08/12/19 18:21 - Orders/Labs/Meds Meds: Medications Discontinued Medications Generic Name Dose Route Start Last Admin Trade Name Tutu PRN Reason Stop Dose Admin Clindamycin HCl 300 mg 08/12/19 19:30 08/12/19 19:58 Cleocin PO 08/12/19 19:31 300 mg ONETIME ONE Administration Departure - Departure Time of Disposition: 20:00 Disposition: Home, Self-Care 01 Condition: Good Clinical Impression: Abscess - Discharge Information Instructions: Skin Abscess, [id number] Forms: ED Department Discharge Additional Instructions: 1) hot compress to boil 2) keep it clean dry covered 3) see clinic Tuesday for wound check 4) take tylenol or motrin for discomfort rx given; clindamycin 300mg qid x 40 Sepsis Event Note - Evaluation Sepsis Screening Result: No Definite Risk - Focused Exam Date Exam was Performed: 08/16/19 Time Exam was Performed: 00:14
== END 2019-08-12 20:00 | disposition home or self-care (01) ==
LOC: DL.ED 17:28
DX: L02.211 Cutaneous abscess of abdominal wall (principal); F17.210 Nicotine dependence, cigarettes, uncomplicated; Z88.2 Allergy status to sulfonamides; Z88.5 Allergy status to narcotic agent
CPT/HCPCS: 99282; A9270